=== PATIENT | male | born 1935 | race Caucasian/White ===

== ENCOUNTER 2016-07-18 09:34 | Outpatient (CLI) | payer MEDICARE ==
[2016-07-18 12:36] LABS: #Basophils 0.1 thou/uL (0.0-0.2); #Eosinphils 0.3 thou/uL (0.0-0.7); #Monocytes 0.5 thou/uL (0.11-0.59); #Neutrophils 1.7 thou/uL (1.40-6.50); %Basophils 1.4 % (0.0-1.0); %Eosinophils 6.1 % (0.0-10.0); %Lymphocytes 44.1 % (21.0-51.0); %Monocytes 10.3 % (0.0-10.0); Hematocrit 28.7 % (42.0-52.0); Mean Platelet Volume 8.1 fL (7.4-10.4); Red Blood Cell (RBC) Count 3.43 mill/uL (4.70-6.10); White Blood Cell (WBC) Count 4.5 thou/uL (4.8-10.8)
[2016-07-18 12:53] LABS: ALT (SGPT) 12 U/L (0-55); AST (SGOT) 17 U/L (5-34); Alkaline Phosphatase 100 U/L (40-150); Anion Gap 13 mmol/L (10-20); BUN (Urea Nitrogen) 25 mg/dL (8.4-25.7); Bilirubin, Direct 0.1 mg/dL (0.1-0.3); Bilirubin, Total 0.3 mg/dL (0.2-1.2); Calc. Creatinine Clearance 0 mL/min (70-130); Calcium 8.8 mg/dL (7.8-10.44); Carbon Dioxide 22 mmol/L (23-31); Chloride 109 mmol/L (98-107); Estimated GFR-MDRD 48; LDL Cholesterol, Calculated 49 mg/dL; Protein, Total 5.9 g/dL (5.8-8.1)
[2016-07-18 12:58] LABS: Hemoglobin A1c 5.4 % (4.0-6.0)
== END 2016-07-18 09:35 | disposition home or self-care (01) ==
LOC: NAVSJIPCSP 09:34
PROVIDERS: ATTEND Family Medicine
DX: E78.5 Hyperlipidemia, unspecified (principal); E11.51 Type 2 diabetes mellitus with diabetic peripheral angiopathy without gangrene; I10 Essential (primary) hypertension; Z79.899 Other long term (current) drug therapy
CPT/HCPCS: 36415; 80048; 80061; 80076; 83036; 84443; 85025

== ENCOUNTER 2016-11-15 08:32 | Outpatient (CLI) | payer MEDICARE ==
[2016-11-15 14:10] LABS: Hemoglobin 13.1 g/dL (14.0-18.0); Manual Diff?? YES; Mean Corpuscular HGB CONC 31.9 g/dL (32.0-36.0); Mean Corpuscular Hemoglobin 28.9 pg (27.0-31.0); Mean Corpuscular Volume 90.6 fL (80.0-94.0); Mean Platelet Volume 8.2 fL (7.4-10.4); Platelet Count 178 thou/uL (130-400); RBC Distribution Width 16.1 % (11.5-14.5); Red Blood Cell (RBC) Count 4.52 mill/uL (4.70-6.10); White Blood Cell (WBC) Count 4.6 thou/uL (4.8-10.8)
[2016-11-15 14:28] LABS: Eosinophils 2 % (0-10); Lymphocytes 57 % (21-51); Monocytes 8 % (0-10); Neutrophil 33 % (42-75); PLT Morphology Comment Appears Adequate
[2016-11-15 14:34] LABS: Hemoglobin A1c 5.7 % (4.0-6.0)
[2016-11-15 15:23] LABS: Anion Gap 15 mmol/L (10-20); Carbon Dioxide 24 mmol/L (23-31); Chloride 107 mmol/L (98-107); Sodium 141 mmol/L (136-145)
[2016-11-15 15:24] LABS: ALT (SGPT) 16 U/L (8-55); AST (SGOT) 23 U/L (5-34); Alkaline Phosphatase 121 U/L (40-150); BUN (Urea Nitrogen) 28 mg/dL (8.4-25.7); Bilirubin, Direct 0.2 mg/dL (0.1-0.3); Bilirubin, Total 0.3 mg/dL (0.2-1.2); Calc. Creatinine Clearance 0 mL/min (70-130); Calcium 9.2 mg/dL (7.8-10.44); Cholesterol 161 mg/dL (< 200 Desired); Estimated GFR-MDRD 54; Glucose 90 mg/dL (83-110); HDL Cholesterol 35 mg/dL (>60 Neg Risk); Protein, Total 6.6 g/dL (5.8-8.1); Triglycerides 384 mg/dL (Less than 150)
[2016-11-15 15:26] LABS: LDL Cholesterol, Calculated 49 mg/dL
[2016-11-15 15:27] LABS: Cardiac Risk 4.6 (Less than 4.5)
[2016-11-15 15:53] LABS: MDiff Complete? YES
[2016-11-15 16:39] LABS: PSA-Asymptomatic (SCREENING) 2.98 ng/mL (0-4.0); Thyroid Stimulating Hormone 3.2621 uIU/mL (0.35-4.94)
== END 2016-11-15 08:33 | disposition home or self-care (01) ==
LOC: NAVSJIPCSP 08:32
PROVIDERS: ATTEND Family Medicine
DX: Z12.5 Encounter for screening for malignant neoplasm of prostate (principal); E11.51 Type 2 diabetes mellitus with diabetic peripheral angiopathy without gangrene; E78.5 Hyperlipidemia, unspecified; D64.9 Anemia, unspecified; Z79.899 Other long term (current) drug therapy
CPT/HCPCS: 36415; 80048; 80061; 80076; 83036; 84443; 85025; G0103

== ENCOUNTER 2016-11-16 13:19 | Outpatient (CLI) | payer MEDICARE ==
[2016-11-17 18:49] LABS: Creatinine, Urine 177.37 mg/dL (63-166); Microalbumin Urine Less than 1.0 mg/dL (0.5-50.0); Microalbumin/Creat Ratio 5.6 mg/g (Less than 30)
== END 2016-11-16 13:20 | disposition home or self-care (01) ==
LOC: NAVSJIPCSP 13:19
PROVIDERS: ATTEND Family Medicine
DX: Z12.5 Encounter for screening for malignant neoplasm of prostate (principal); E11.51 Type 2 diabetes mellitus with diabetic peripheral angiopathy without gangrene; E78.5 Hyperlipidemia, unspecified; D64.9 Anemia, unspecified; Z79.899 Other long term (current) drug therapy
CPT/HCPCS: 82043

== ENCOUNTER 2017-03-22 10:17 | Outpatient (CLI) | payer MEDICARE ==
[2017-03-22 12:20] LABS: #Basophils 0.1 thou/uL (0.0-0.2); #Eosinphils 0.2 thou/uL (0.0-0.7); #Lymphocytes 1.6 thou/uL (1.20-3.40); #Monocytes 0.4 thou/uL (0.11-0.59); #Neutrophils 2.2 thou/uL (1.40-6.50); %Basophils 1.1 % (0.0-1.0); %Eosinophils 5.3 % (0.0-10.0); %Neutrophils 48.6 % (42.0-75.0); Hemoglobin 12.8 g/dL (14.0-18.0); Mean Corpuscular HGB CONC 31.5 g/dL (32.0-36.0); Mean Corpuscular Volume 92.1 fl (80.0-94.0); Mean Platelet Volume 8.6 fL (7.4-10.4); Platelet Count 199 thou/uL (130-400); RBC Distribution Width 12.1 % (11.5-14.5); Red Blood Cell (RBC) Count 4.42 mill/uL (4.70-6.10); White Blood Cell (WBC) Count 4.6 thou/uL (4.8-10.8)
[2017-03-22 12:30] LABS: ALT (SGPT) 13 U/L (8-55); AST (SGOT) 21 U/L (5-34); Albumin 4.1 g/dL (3.4-4.8); Alkaline Phosphatase 140 U/L (40-150); Anion Gap 14 mmol/L (10-20); BUN (Urea Nitrogen) 20 mg/dL (8.4-25.7); Bilirubin, Direct 0.1 mg/dL (0.1-0.3); Bilirubin, Total 0.3 mg/dL (0.2-1.2); Calc. Creatinine Clearance 0 mL/min (70-130); Calcium 9.4 mg/dL (7.8-10.44); Carbon Dioxide 26 mmol/L (23-31); Cardiac Risk 4.1 (Less than 4.5); Chloride 104 mmol/L (98-107); Cholesterol 153 mg/dl (< 200 Desired); Estimated GFR-MDRD 58; Glucose 105 mg/dL (83-110); HDL Cholesterol 37 mg/dL (>60 Neg Risk); LDL Cholesterol, Calculated 68 mg/dL; Potassium 4.5 mmol/L (3.5-5.1); Protein, Total 6.4 g/dL (5.8-8.1); Sodium 139 mmol/L (136-145); Triglycerides 241 mg/dL (Less than 150)
[2017-03-22 12:51] LABS: Hemoglobin A1c 5.7 % (4.0-6.0)
== END 2017-03-22 10:18 | disposition home or self-care (01) ==
LOC: NAVSJIPCSP 10:17
PROVIDERS: ATTEND Family Medicine
DX: E11.51 Type 2 diabetes mellitus with diabetic peripheral angiopathy without gangrene (principal); D64.9 Anemia, unspecified; E78.5 Hyperlipidemia, unspecified; Z79.899 Other long term (current) drug therapy
CPT/HCPCS: 36415; 80048; 80061; 80076; 83036; 84443; 85025

== ENCOUNTER 2017-05-26 12:36 | Emergency (ER) | payer MEDICARE ==
[2017-05-26] MEDS ORDERED: HYDROcodone/Acetaminophen 5/325 mg Tablet ONE (14:20)
--- NOTE | 2017-05-26 15:52 | RAD ---
THREE VIEWS OF THE LEFT ANKLE: 05/26/17 COMPARISON: None. HISTORY: Ankle injury, pain. FINDINGS: There is prominent medial and lateral soft tissue swelling. There is an obliquely oriented distal lef t fibular fracture. Distal fracture fragment demonstrates minimal lateral displacement. There is a po sterior malleolar fracture involving the distal left tibia, obliquely oriented, with minimal proximal and posterior displacement. There is a transverse displaced fracture of the medial malleolus. The fi bular fracture extends into the region of the distal tibia fibular articulation with slight widening which may signify an underlying injury of the interosseous membrane. No evidence for dislocation is s een. There is dorsal degenerative change involving the midfoot. There is enthesophyte formation at the ins ertion of the Achilles tendon. IMPRESSION: Displaced trimalleolar fracture. Post reduction imaging advised. POS: [place]
--- NOTE | 2017-05-26 16:12 | RAD ---
LEFT KNEE 2 VIEWS: Date: 05/26/17 HISTORY: Trauma. Pain. Fracture. COMPARISON: None. FINDINGS: Exam is limited by overlying cast material. No large joint effusion is appreciated. There are some os sicles of the distal quadriceps tendon, most likely avulsion fracture. IMPRESSION: Limited examination without a displaced fracture appreciated. Follow-up 4 views of knee recommended a fter cast material is removed with proper positioning. POS: [place]
== END 2017-05-26 14:45 | disposition home or self-care (01) ==
LOC: NAV ERS 12:36
DX: S82.852A Displaced trimalleolar fracture of left lower leg, initial encounter for closed fracture (principal); I25.10 Atherosclerotic heart disease of native coronary artery without angina pectoris; I10 Essential (primary) hypertension; Z79.899 Other long term (current) drug therapy; W01.0XXA Fall on same level from slipping, tripping and stumbling without subsequent striking against object, initial encounter
CPT/HCPCS: 29515

== ENCOUNTER 2018-11-07 13:28 | Inpatient (IN) | payer MEDICARE ==
[2018-11-07] MEDS ORDERED: tiZANidine HCl 4 MG TAB PO SCH (16:30)
[2018-11-07] MEDS: traMADol HCl 50 MG TAB PO PRN ×2 (16:36→21:36)
[2018-11-07] MEDS ORDERED: Polyethylene Glycol 3350 17 GM Packet PO PRN (19:06)
[2018-11-07] MEDS: Atorvastatin Calcium 10 MG TAB PO SCH (20:40)
[2018-11-07] MEDS: Gabapentin 300 MG CAP PO SCH (20:40)
[2018-11-07] MEDS: Carbidopa/Levodopa 25-100 mg Tablet PO SCH (20:40)
[2018-11-07] MEDS ORDERED: MISOPROSTOL PO SCH (21:00)
[2018-11-07] MEDS ORDERED: Gabapentin 300 MG CAP PO SCH (21:00)
[2018-11-07] MEDS ORDERED: DICLOFENAC PO SCH (21:00)
[2018-11-07] MEDS: Acetaminophen 500 MG TAB PO PRN (21:37)
[2018-11-07] MEDS: Zolpidem Tartrate 5 MG TAB PO SCH (22:24)
--- NOTE | 2018-11-08 02:46 | HP ---
HISTORY OF PRESENT ILLNESS: Mr. Messina is a very pleasant 83-year-old white male , who is transferred from [facility] to the [facility] here. Apparently, the patient was initially admitted to [facility] with a gastric pyloric obstruction. He was scoped by Dr. Carmichael, eventually stabilized and sent home. Two days later, the patient started with nausea, vomiting, and was directly admitted to the hospital. He was scoped again by Dr. Carmichael. 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 This was dilated again and bezoars were removed with 12-mm to 18-mm basket. The patient was stabilized , but continued to have duodenal obstruction or pyloric obstruction. Four days later, he was scoped again and continued to have dietary problems. Dr. Jose Blanc was asked to see the patient in consultation and recommended a Christianne-en-Y reconstruction with antrectomy. It was felt he was too weak to have that done and therefore, he was transferred to [facility] in [place] to continue with physical therapy, occupational therapy, and nutritional therapy to increase his nutrition. Last dietary recommendation was that the patient should have Enlive 4 times a day along with other nutritional supplements as needed. The goal is to get his protein to 80 grams a day. The patient was transferred today, and I sat down extensively with the patient and his went over his medications, adjusted them and corrected them to what they should be. Those medications include the following; CURRENT MEDICATIONS: Includes the following; 1. Procardia XL 90 mg every morning. 2. Simvastatin 20 mg once every evening, which has been substituted for atorvastatin here at this hospital. 3. Carbidopa/levodopa 25/100, one pill every evening, not every morning. 4. Isosorbide mononitrate ER 30 mg extended tab one b.i.d. 5. Ranexa 500 mg extended release 12 hours one b.i.d. 6. Pantoprazole 40 mg b.i.d. 7. Gabapentin 300 mg b.i.d. 8. Tizanidine 4 mg one b.i.d. p.r.n., and the patient states he may take one or two a week. 9. Tramadol 100 mg 4 times a day, which is about every 6 hours with a Tylenol. 10. Ambien 10 mg once a day at bedtime. PAST MEDICAL HISTORY: 1. Reveals the patient has had history of coronary artery disease with multiple stents, I believe up to 9. 2. 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 3. Anemia. 4. Insomnia. 5. GERD. 6. Restless legs syndrome. 7. Hypertension. 8. Arthritis. 9. Hyperlipidemia. 10. Nasal allergies. 11. Chronic sinusitis. PAST SURGICAL HISTORY: 1. Left rotator cuff in 1986. 2. Carpal tunnel release in 1994. 3. Back surgery in 1998. 4. Neck surgery in 2000. 5. Total right knee in 2007. 6. Back surgery for L2 decompression fusion in 2006. 7. Back stabilization, Dr. Zhang, in 2013. 8. Hammertoe surgery, Dr. Fan, in 2008. 9. Right cataract surgery, Dr. Everett, in 2012. 10. Right cataract surgery revision, Dr. Everett, in 2012. 11. Repair of right eye cataract surgery for incorrect lens, Dr. Everett, in 2014. 12. Cardiac cath with balloon and stents x3 with Dr. Mcdonald in 2015. 13. Cardiac cath again in 2016. 14. Excision of basal cell carcinoma by Dr. Jose Blanc in 2016. 15. Right ankle surgery in 2017. 16. Repeat L1-L2 lumbar decompression, Dr. Elder, in 2018. 17. Five bulging disks, Dr. Elder, in 2018. 18. Bone spurs, Dr. Elder, in 2019. FAMILY HISTORY: Reveals the patient's father at age 82. The patient's mother at age 81 of aneurysm. The patient has a family history of high cholesterol and heart disease. SOCIAL HISTORY: Reveals the patient does not smoke. Does not use drugs, rarely drinks any alcohol. ALLERGIES: REVEALS THE PATIENT HAS MULTIPLE ALLERGIES INCLUDING; 1. IVP DYE. 2. CLARITIN. 3. ISORDIL TITRADOSE. 4. CELEBREX. 5. INDOCIN. 6. VANNESSA INHIBITORS. 7. PRASUGREL. 8. Morphine 9 TAPE REVIEW OF SYSTEMS: CONSTITUTIONAL: Reveals the patient denies fever, chills, and night sweats. He has been losing weight since he has not been eating. The patient has significant fatigue and weakness. HEENT: The patient denies headaches or head injury and denies any changes in his vision recently. The patient denies any significant allergy problems recently or rhinorrhea. RESPIRATORY: The patient denies respiratory problems including cough, cold, congestion, or wheezing. CARDIAC: The patient denies any chest pain, dyspnea on exertion, or significant edema except for that in his arms from his IVs. GI: The patient has had some diarrhea, mainly nausea and vomiting and outlet obstruction from the duodenum. GENITOURINARY: The patient denies any nocturia, hematuria, dysuria, or incontinence at this time. MUSCULOSKELETAL: The patient denies any joint swelling, but he has bad knees and bad back and has pain from that. SKIN: The patient denies any skin rashes. He does have swelling in his right arm and left arm from an infiltrated IVs. PHYSICAL EXAMINATION: GENERAL: This is a well-developed, well-nourished, very pleasant 83-year-old white male, who states he just feels weak. HEENT: Reveals normocephalic and nontraumatic cranium. Pupils are equally round and reactive. Extraocular movements are intact. Nose and throat are slightly dry. NECK: Supple without masses, nodes, or bruits. CHEST: Clear to auscultation. No rales, no rhonchi, no wheezes are heard. HEART: Reveals a regular rate and rhythm without murmurs, gallops, or rubs. ABDOMEN: Soft, scaphoid, nontender without organomegaly. Bowel sounds are heard in all 4 quadrants. No rebound or guarding is noted. No masses are felt. No CVA tenderness. : Exam is deferred. EXTREMITIES: Reveal no clubbing or cyanosis. The patient has quite a bit of swelling in his right arm from the IV infiltrated and some in his left arm. He has trace edema in bilateral extremities. He has no CVA tenderness. NEUROLOGIC: The patient has no focal findings. ASSESSMENT: 1. Pyloric ulcer. 2. Gastric outlet obstruction. 3. Removal of a bezoar by Dr. Carmichael. 4. History of coronary arterial sclerosis, followed by Dr. Mcdonald. 5. Insomnia. 6. Diabetes type 2 with diabetic peripheral neuropathy. 7. Anemia. 8. Restless legs syndrome. 9. Hypertension. 10. Arthritis. 11. Pain management. 12. Hyperlipidemia. PLAN: 1. The patient was transferred here for increasing his nutrition and to increase his strength and stamina. 2. We will consult Physical Therapy. 3. We will consult Occupational Therapy. 4. We will do a Dietary consult. 5. We will make sure the patient gets at least 80 g of protein every day and lot of fluids. 6. The patient will have a low fiber diet. Job ID: [id number] MTDD
[2018-11-08 05:45] LABS: ALT (SGPT) 12 U/L (8-55); AST (SGOT) 38 U/L (5-34); Albumin 2.2 g/dL (3.4-4.8); Alkaline Phosphatase 146 U/L (40-150); Anion Gap 12 mmol/L (10-20); BUN (Urea Nitrogen) 17 mg/dL (8.4-25.7); Bilirubin, Total 0.2 mg/dL (0.2-1.2); Calc. Creatinine Clearance 83 mL/min (70-130); Carbon Dioxide 26 mmol/L (23-31); Chloride 100 mmol/L (98-107); Estimated GFR-MDRD 78; Globulin 2.5 g/dL (2.4-3.5); Glucose 96 mg/dL (83-110); Potassium 4.2 mmol/L (3.5-5.1); Protein, Total 4.7 g/dL (5.8-8.1); Sodium 134 mmol/L (136-145)
[2018-11-08 05:52] LABS: #Lymphocytes 1.8 thou/uL (1.20-3.40); #Monocytes 0.5 thou/uL (0.11-0.59); #Neutrophils 3.5 thou/uL (1.40-6.50); %Basophils 0.3 % (0.0-1.0); %Eosinophils 0.8 % (0.0-10.0); %Lymphocytes 30.1 % (21.0-51.0); %Monocytes 9.3 % (0.0-10.0); %Neutrophils 59.5 % (42.0-75.0); Hemoglobin 7.6 g/dL (14.0-18.0); Hypochromia MODERATE=16-30 cells (100X) (0-5/hpf); MDiff Complete? YES; Mean Corpuscular HGB CONC 30.2 g/dL (32.0-36.0); Mean Corpuscular Hemoglobin 24.6 pg (27.0-31.0); Mean Corpuscular Volume 81.5 fL (78.0-98.0); Mean Platelet Volume 6.8 fL (7.4-10.4); Microcytosis MODERATE=15-30 cells (100X) (0-5/hpf); Ovalocytes SLIGHT = 2-5 cells (100X) (0-1/hpf); Platelet Count 302 thou/uL (130-400); Platelet Morphology Comment Appears Adequate; RBC Distribution Width 14.8 % (11.5-14.5); Red Blood Cell (RBC) Count 3.11 mill/uL (4.70-6.10); Target Cells MODERATE= 6-15 cells (100X) (0-1/hpf); White Blood Cell (WBC) Count 5.8 thou/uL (4.8-10.8)
[2018-11-08] MEDS: Acetaminophen 500 MG TAB PO PRN ×3 (08:15→20:32)
[2018-11-08] MEDS: traMADol HCl 50 MG TAB PO PRN ×3 (08:15→20:33)
[2018-11-08] MEDS: Gabapentin 300 MG CAP PO SCH ×2 (08:16→20:32)
[2018-11-08] MEDS: NIFEdipine XL 30 MG TAB PO SCH (08:16)
[2018-11-08] MEDS ORDERED: Polyethylene Glycol 3350 17 GM Packet PO SCH (09:00)
[2018-11-08] MEDS ORDERED: Carbidopa/Levodopa 25-100 mg Tablet PO SCH (09:00)
--- NOTE | 2018-11-08 10:48 | PRG ---
DATE OF SERVICE: 11/08/2018 SUBJECTIVE: Mr. Messina is a very pleasant 83-year-old white male, who was transferred from [facility] to swing bed at [facility] secondary to postbulbar duodenal stricture. Dr. Carmichael scoped him 2 or 3 times and removed bezoar and dilated that obstruction. He is unable to take any fibers at this time, and therefore, he is on pretty much full liquid diet. He was transferred by Dr. Jose Blanc to stay here a couple weeks to increase his nutritional status and to increase his strength and stamina. He states he slept well last night, but he is anemic this morning. His white count was 5800, but his hemoglobin 7.6, hematocrit 25.4, platelet count 302,000. Sodium is 134, potassium 4.2, creatinine 0.93, AST 38, ALT 12, and his pre-albumin is pending. The patient states he had a fairly good day. Eating and drinking okay today. PHYSICAL EXAMINATION: GENERAL: This is a well-developed, well-nourished, very pleasant white male, in no apparent distress at this time. HEENT: Normocephalic and nontraumatic cranium. Pupils are equal, round, and reactive. Extraocular movements are intact. Nose and throat are slightly dry. NECK: Supple without masses, nodes, or bruits. CHEST: Clear to auscultation. No rales, rhonchi, or wheezes are heard. HEART: Regular rate and rhythm without murmurs, gallops, or rubs. ABDOMEN: Soft, nontender without organomegaly. Normal bowel sounds are noted. No rebound or guarding is noted. Diary is improving. : Deferred. EXTREMITIES: No clubbing or cyanosis. The patient's right hand has less edema than it did yesterday. He states it feels better. ASSESSMENT: 1. Pyloric ulcer. 2. Anemia. 3. Gastric outlet obstruction. 4. Removal of bezoar by Dr. Carmichael. 5. History of coronary artery disease, followed by Dr. Mcdonald. 6. Diabetes type 2 with diabetic peripheral neuropathy in the past. 7. Insomnia. 8. Anemia. 9. Restless legs syndrome. 10. Hypertension. 11. Arthritis. 12. Hyperlipidemia. 13. Pain management. PLAN: 1. The patient is complaining about being drawn every day. We will skip his blood count tomorrow and repeat a CBC tomorrow and next skip his blood count today and repeat a CBC tomorrow. 2. Consult Physical Therapy and Occupational Therapy. 3. Dietary consult. 4. The patient should begin at least 80 g of protein a day, lots of liquids. 5. Full liquid diet. Job ID: [id number]
[2018-11-08] MEDS: Carbidopa/Levodopa 25-100 mg Tablet PO SCH (20:57)
[2018-11-08] MEDS: Atorvastatin Calcium 10 MG TAB PO SCH (20:57)
[2018-11-08] MEDS: Zolpidem Tartrate 5 MG TAB PO SCH (22:04)
[2018-11-09] MEDS: Acetaminophen 500 MG TAB PO PRN ×2 (02:30→19:35)
[2018-11-09] MEDS: traMADol HCl 50 MG TAB PO PRN ×4 (02:30→19:36)
[2018-11-09] MEDS: NIFEdipine XL 30 MG TAB PO SCH (09:11)
[2018-11-09] MEDS: Gabapentin 300 MG CAP PO SCH ×2 (09:12→20:47)
--- NOTE | 2018-11-09 14:14 | PRG ---
DATE OF SERVICE: 11/09/2018 SUBJECTIVE: This is a very pleasant, well-developed, 83-year-old white male, who was seen at [facility] with a postbulbar duodenal stricture that had to be scoped twice. He had a bezoar removed and that obstruction was dilated out. He is unable to take any fibrous food at this time, and therefore, he is pretty much on a full-liquid high-protein diet. He was transferred by Dr. Blanc to [facility] to increase his strength, stamina, and nutritional status. The patient states he had a pretty good night last night, but had to urinate multiple times. The patient states that that happens occasionally. PHYSICAL EXAMINATION: GENERAL: This is a well-developed, well-nourished, very pleasant white male, in no apparent distress at this time. HEENT: Reveals normocephalic and nontraumatic cranium. Pupils are equally round and reactive. Extraocular movements are intact. Nose and throat are slightly dry, but clear. NECK: Supple without masses, nodes, or bruits. CHEST: Clear to auscultation. No rales, rhonchi, or wheezes are heard. HEART: Reveals a regular rate and rhythm without murmurs, gallops, or rubs. ABDOMEN: Soft and nontender without organomegaly. Normal bowel sounds noted. No abdominal pain is noted. No rebound or guarding is noted. : Deferred. EXTREMITIES: Reveal no clubbing or cyanosis. The patient's hand has much less edema and swelling. It is much less painful. ASSESSMENT: 1. Pyloric ulcer. 2. Duodenal and small-bowel obstruction. 3. Anemia. 4. Removal of bezoar by Dr. Carmichael. 5. History of coronary artery disease, followed by 6Latha Mcdonald. 7. Diabetes type 2 with diabetic peripheral neuropathy in the past. 8. Insomnia. 9. Anemia. 10. Restless legs syndrome. 11. Hypertension. 12. Arthritis. 13. Hyperlipidemia. 14. Pain management. PLAN: 1. The patient will have his tramadol moved to q.4 hours p.r.n. 2. We will skip his CBC this morning, and we will repeat a CBC and chem-7 tomorrow. 3. Continue PT and OT. 4. Dietary consult. 5. The patient should begin at least 80 g of protein a day, lots of liquids. 6. Full-liquid diet. Job ID: [id number]
[2018-11-09] MEDS: Carbidopa/Levodopa 25-100 mg Tablet PO SCH (20:47)
[2018-11-09] MEDS: Atorvastatin Calcium 10 MG TAB PO SCH (20:47)
[2018-11-09] MEDS: Zolpidem Tartrate 5 MG TAB PO SCH (22:28)
[2018-11-10 05:12] LABS: #Eosinphils 0.1 thou/uL (0.0-0.7); #Lymphocytes 1.7 thou/uL (1.20-3.40); #Monocytes 0.5 thou/uL (0.11-0.59); #Neutrophils 3.4 thou/uL (1.40-6.50); %Basophils 0.7 % (0.0-1.0); %Lymphocytes 30.1 % (21.0-51.0); %Monocytes 7.9 % (0.0-10.0); %Neutrophils 59.3 % (42.0-75.0); Hemoglobin 7.8 g/dL (14.0-18.0); Hypochromia MODERATE=16-30 cells (100X) (0-5/hpf); MDiff Complete? YES; Mean Corpuscular HGB CONC 30.5 g/dL (32.0-36.0); Mean Corpuscular Hemoglobin 24.5 pg (27.0-31.0); Mean Corpuscular Volume 80.4 fL (78.0-98.0); Mean Platelet Volume 6.9 fL (7.4-10.4); Microcytosis MODERATE=15-30 cells (100X) (0-5/hpf); Ovalocytes SLIGHT = 2-5 cells (100X) (0-1/hpf); Platelet Count 342 thou/uL (130-400); Platelet Morphology Comment Appears Adequate; Red Blood Cell (RBC) Count 3.18 mill/uL (4.70-6.10); Target Cells MODERATE= 6-15 cells (100X) (0-1/hpf); White Blood Cell (WBC) Count 5.8 thou/uL (4.8-10.8)
[2018-11-10 05:27] LABS: Anion Gap 12 mmol/L (10-20); BUN (Urea Nitrogen) 14 mg/dL (8.4-25.7); Calc. Creatinine Clearance 92 mL/min (70-130); Calcium 8.1 mg/dL (7.8-10.44); Carbon Dioxide 28 mmol/L (23-31); Chloride 99 mmol/L (98-107); Estimated GFR-MDRD 87; Glucose 88 mg/dL (83-110); Potassium 3.8 mmol/L (3.5-5.1); Sodium 135 mmol/L (136-145)
[2018-11-10] MEDS: traMADol HCl 50 MG TAB PO PRN ×4 (07:15→22:40)
[2018-11-10] MEDS: Acetaminophen 500 MG TAB PO PRN ×4 (07:15→22:39)
--- NOTE | 2018-11-10 08:17 | PRG ---
DATE OF SERVICE: 11/10/2018 SUBJECTIVE: Mr. Messina is a very pleasant 83-year-old white male, who had a small bowel obstruction, was seen in the emergency room at [facility] twice. He had been scoped 2 [address] Carmichael and had a bezoar removed. The obstruction was dilated twice. He is unable to take any fibrous food at this time. Therefore, he is pretty much on a full liquid high-protein diet. He is transferred by Dr. Blanc the surgeon to [facility] to increase his strength, stamina, and nutritional status before he has curative surgery. The patient states he had a pretty good night last night and slept well. He has no complaints this morning. On physical exam, the patient states he is doing well today. OBJECTIVE: VITAL SIGNS: Reveal blood pressure 161/77, pulse 71 to 76, respirations 20, O2 saturation of 97% on room air, T-max 98.9. GENERAL: On physical exam, this is a well-developed, well-nourished, very pleasant white male, in no apparent distress at this time. HEENT: Revealed normocephalic and nontraumatic cranium. Pupils are equal, round, and reactive. Extraocular movements are intact. Nose and throat are still dry, but clear. NECK: Supple without masses, nodes, or bruits. CHEST: Clear to auscultation. No rales, rhonchi, wheezes, or cough is noted. HEART: Reveals a regular rate and rhythm without murmurs, gallops, or rubs. ABDOMEN: Soft, nontender without organomegaly. Normal bowel sounds are noted. No rebound or guarding is noted. Abdomen is somewhat scaphoid. It is nontender. : Deferred. EXTREMITIES: Reveal no clubbing or cyanosis. The patient has much less swelling again in his right hand and states he can now close it and touch his fingers. ASSESSMENT: 1. Pyloric ulcer. 2. Duodenal small-bowel obstruction. 3. Anemia. 4. Bezoar removed by Dr. Carmichael. 5. History of coronary artery disease, followed by Dr. Mcdonald. 6. Diabetes type 2 with diabetic peripheral neuropathy in the past. 7. Insomnia. 8. Anemia. 9. Restless legs syndrome. 10. Hypertension. 11. Arthritis. 12. Hyperlipidemia. 13. Pain management. PLAN: 1. The patient's pain management has much improved. 2. The patient's blood work this morning reveals his hemoglobin is 7.8 which is slightly increased and hematocrit is 24.5, which is slightly increased. Creatinine is 0.84. 3. Continue PT and OT. 4. Dietary consult. 5. The patient should begin at least 80 g of protein and more if needed. 6. The patient's pre-albumin was noted to be 7 and so we will start the patient on Pro-Stat daily. 7. Encourage the patient to eat high-protein and low-fiber. Job ID: [id number]
[2018-11-10] MEDS: NIFEdipine XL 30 MG TAB PO SCH (08:36)
[2018-11-10] MEDS: Gabapentin 300 MG CAP PO SCH ×2 (08:36→21:29)
[2018-11-10] MEDS: Atorvastatin Calcium 10 MG TAB PO SCH (21:29)
[2018-11-10] MEDS: Carbidopa/Levodopa 25-100 mg Tablet PO SCH (21:29)
[2018-11-10] MEDS: Zolpidem Tartrate 5 MG TAB PO SCH (22:39)
[2018-11-11] MEDS: NIFEdipine XL 30 MG TAB PO SCH (08:29)
[2018-11-11] MEDS: Gabapentin 300 MG CAP PO SCH ×2 (08:29→21:08)
[2018-11-11] MEDS: traMADol HCl 50 MG TAB PO PRN ×4 (08:30→23:08)
[2018-11-11] MEDS: Acetaminophen 500 MG TAB PO PRN ×4 (08:30→23:08)
--- NOTE | 2018-11-11 09:09 | PRG ---
DATE OF SERVICE: 11/11/2018 SUBJECTIVE: Mr. Messina is a very pleasant 83-year-old white male, who developed small bowel obstruction. Sent to [facility], where he was decompressed and scoped. He was sent home, but returned several days later with the same problem. Dr. Carmichael did EGDs on him and removed a bezoar and dilated his distal duodenum 2 to 3 times. He is unable to keep any fibrous food down, so therefore, he was transferred to [facility] for increased full liquid, high-protein diet. He has been seen by Dr. Jose Blanc, surgeon at [facility]. The plan is to get Mr. Messina much stronger and significantly improve his nutrition and then take him to surgery for possible Christianne-en-Y. OBJECTIVE: VITAL SIGNS: Reveal blood pressure 145/68, pulse 71 to 72, respirations 18, O2 saturation 96% to 97% on room air. T-max 98.8. GENERAL: This is a well-developed, well-nourished, pleasant white male, in no apparent distress at this time. He states he has not had a bowel movement in the last day. HEENT: Reveals a normocephalic and nontraumatic cranium. Pupils are equally round and reactive. Extraocular movements are intact. Nose and throat are slightly dry, but clear. NECK: Supple without masses, nodes, or bruits. CHEST: Clear to auscultation. No rales, rhonchi, wheezes are heard. HEART: Reveals a regular rate and rhythm without murmurs, gallops or rubs. ABDOMEN: Soft, nontender without organomegaly. Normal bowel sounds are noted in all 4 quadrants. No rebound or guarding is noted. GENITOURINARY: Exam is deferred. EXTREMITIES: Reveal no clubbing, cyanosis, or edema. The patient has again much less swelling. His right hand is almost back to normal and now he can make a fist. ASSESSMENT: 1. Small bowel obstruction. 2. Pyloric channel ulcer. 3. Anemia. 4. Bezoar removed by Dr. Carmichael secondary to obstruction. 5. Coronary artery disease, followed by Dr. Mcdonald. 6. Diabetes type 2. 7. Diabetic peripheral neuropathy. 8. Insomnia. 9. Anemia. 10. Restless legs syndrome. 11. Hypertension. 12. Arthritis. 13. Hyperlipidemia. 14. Pain management. 15. Generalized weakness. PLAN: 1. The patient's pain management is much improved with his tramadol 2 pills 4 times a day. 2. The patient had no blood work today. We will repeat his blood work tomorrow. 3. Continue PT and OT. 4. Continue dietary consult. 5. The patient is eating at least 80 g of protein a day. 6. The patient is tolerating ProStat daily. 7. Encourage the patient to continue to eat/drink high-protein, low-fiber. Job ID: [id number]
[2018-11-11 13:53] VITALS: BMI 25.2
[2018-11-11] MEDS: Atorvastatin Calcium 10 MG TAB PO SCH (21:08)
[2018-11-11] MEDS: Carbidopa/Levodopa 25-100 mg Tablet PO SCH (21:08)
[2018-11-11] MEDS: Zolpidem Tartrate 5 MG TAB PO SCH (23:08)
[2018-11-12] MEDS: Acetaminophen 500 MG TAB PO PRN ×4 (04:59→20:23)
[2018-11-12] MEDS: traMADol HCl 50 MG TAB PO PRN ×4 (04:59→20:21)
[2018-11-12 05:04] LABS: #Eosinphils 0.1 thou/uL (0.0-0.7); #Lymphocytes 1.9 thou/uL (1.20-3.40); #Monocytes 0.4 thou/uL (0.11-0.59); #Neutrophils 2.2 thou/uL (1.40-6.50); %Eosinophils 2.8 % (0.0-10.0); %Monocytes 8.3 % (0.0-10.0); %Neutrophils 46.9 % (42.0-75.0); Hemoglobin 7.9 g/dL (14.0-18.0); Hypochromia MODERATE=16-30 cells (100X) (0-5/hpf); Mean Corpuscular HGB CONC 29.9 g/dL (32.0-36.0); Mean Corpuscular Hemoglobin 24.4 pg (27.0-31.0); Mean Corpuscular Volume 81.6 fL (78.0-98.0); Mean Platelet Volume 6.6 fL (7.4-10.4); Microcytosis MODERATE=15-30 cells (100X) (0-5/hpf); Ovalocytes SLIGHT = 2-5 cells (100X) (0-1/hpf); Platelet Count 247 thou/uL (130-400); Platelet Morphology Comment Appears Adequate; RBC Distribution Width 15.3 % (11.5-14.5); Red Blood Cell (RBC) Count 3.26 mill/uL (4.70-6.10); Target Cells MODERATE= 6-15 cells (100X) (0-1/hpf); White Blood Cell (WBC) Count 4.6 thou/uL (4.8-10.8)
[2018-11-12 05:07] LABS: MDiff Complete? YES; Manual Diff?? NO
[2018-11-12 05:23] LABS: ALT (SGPT) 16 U/L (8-55); AST (SGOT) 36 U/L (5-34); Albumin 2.4 g/dL (3.4-4.8); Alkaline Phosphatase 137 U/L (40-150); Anion Gap 13 mmol/L (10-20); BUN (Urea Nitrogen) 15 mg/dL (8.4-25.7); Bilirubin, Total 0.2 mg/dL (0.2-1.2); Calc. Creatinine Clearance 81 mL/min (70-130); Calcium 8.1 mg/dL (7.8-10.44); Carbon Dioxide 28 mmol/L (23-31); Chloride 101 mmol/L (98-107); Estimated GFR-MDRD 80; Globulin 2.5 g/dL (2.4-3.5); Glucose 85 mg/dL (83-110); Potassium 3.8 mmol/L (3.5-5.1); Protein, Total 4.9 g/dL (5.8-8.1); Sodium 138 mmol/L (136-145)
[2018-11-12] MEDS: Gabapentin 300 MG CAP PO SCH ×2 (08:54→20:20)
[2018-11-12] MEDS: NIFEdipine XL 30 MG TAB PO SCH (08:54)
[2018-11-12] MEDS: Atorvastatin Calcium 10 MG TAB PO SCH (20:19)
[2018-11-12] MEDS: Carbidopa/Levodopa 25-100 mg Tablet PO SCH (20:20)
--- NOTE | 2018-11-12 21:13 | PRG ---
DATE OF SERVICE: 11/12/2018 SUBJECTIVE: Mr. Messina is a very pleasant 83-year-old white male, who has small bowel obstruction and presented to the ER at [facility], where he was decompressed and scoped. He was sent home and several days later, returned to the ER again at [facility] with the same problem. Dr. Carmichael did serial EGDs on him, removed a bezoar and dilated his distal duodenal stenosis. The patient was unable to keep any fibers down, so he was scheduled for Christianne-en-Y. It was felt that he was too weak and so therefore, he was transferred to [facility] for physical therapy and occupational therapy to increase his strength and stamina and for nutritional supplementation with liquid proteins. OBJECTIVE: VITAL SIGNS: Today reveal blood pressure this morning of 154/71, pulse 68, respirations 18, O2 saturation 96% to 97% on room air and T-max 98.4. GENERAL: This is a well-developed, well-nourished, very pleasant white male, in no apparent distress at this time. HEENT: Normocephalic and nontraumatic cranium. The pupils are equally round and reactive. Extraocular movements are intact. Nose and throat are slightly dry. NECK: Supple without masses, nodes, or bruits. CHEST: Clear to auscultation. No rales, rhonchi, wheezes, or cough is heard. HEART: Reveals a regular rate and rhythm without murmurs, gallops, or rubs. ABDOMEN: Soft, scaphoid, nontender without organomegaly. Normal bowel sounds are noted. No rebound or guarding is noted. : Deferred. EXTREMITIES: Reveal no clubbing, cyanosis, or edema. The patient has again much less swelling in his right and left hands. ASSESSMENT: 1. Small bowel obstruction. 2. Pyloric channel ulcer. 3. Anemia. 4. Bezoar removed by Dr. Carmichael that gave secondary obstruction. 5. Coronary artery disease, followed by Dr. Mcdonald. 6. Diabetes type 2. 7. Diabetic peripheral neuropathy. 8. Insomnia. 9. Anemia. 10. Restless legs syndrome. 11. Hypertension. 12. Arthritis. 13. Hyperlipidemia. 14. Pain management. 15. Generalized weakness. PLAN: 1. The patient is here to increase his protein intake and nutritional support. 2. His lab work is actually slowly improving. 3. Continue PT and OT. 4. Dietary consult. 5. The patient is to eat at least 80 g of protein a day. 6. The patient is tolerating ProStat daily. 7. Encourage the patient to continue PT and OT and eating and drinking high-protein, low-fiber diet. Job ID: [id number]
[2018-11-12] MEDS: Zolpidem Tartrate 5 MG TAB PO SCH (22:36)
[2018-11-13] MEDS: traMADol HCl 50 MG TAB PO PRN ×4 (02:04→18:26)
[2018-11-13] MEDS: Acetaminophen 500 MG TAB PO PRN ×4 (02:05→18:26)
[2018-11-13] MEDS: NIFEdipine XL 30 MG TAB PO SCH (08:30)
[2018-11-13] MEDS: Gabapentin 300 MG CAP PO SCH ×2 (08:30→20:18)
--- NOTE | 2018-11-13 10:17 | PRG ---
DATE OF SERVICE: 11/13/2018 SUBJECTIVE: Mr. Messina is a very pleasant 83-year-old white male, who had abdominal pain and small bowel obstruction. He presented to the emergency room and was transferred to [facility], where he was decompressed and scoped. He was stabilized and sent home. Seven days later, he became obstructed again, went back to the [facility]. At this time Dr. Carmichael did several EGDs on him, removed a bezoar and slowly dilated a distal duodenal stenosis. The patient was unable to keep any fibrous foods down, so he was schedule for a Christianne-en-Y. He was too weak to get his Christianne-en-Y. Therefore, he was transferred to [facility] for PT and OT and for nutritional supplementation. OBJECTIVE: VITAL SIGNS: Today reveal blood pressure 156/80, pulse 64 to 73, respirations 18 to 20, O2 saturation 96% to 97% on room air, and T-max 98.4. GENERAL: This is a well-developed, well-nourished, very pleasant white male, in no apparent distress at this time. HEENT: Reveals normocephalic and nontraumatic cranium. Pupils are equal, round, and reactive. Extraocular movements are intact. Nose and throat are slightly dry. NECK: Supple without masses, nodes, or bruits. CHEST: Clear to auscultation. No rales, rhonchi, wheezes, or cough is heard. HEART: Reveals a regular rate and rhythm without murmurs, gallops, or rubs. ABDOMEN: Soft, scaphoid, and nontender. No organomegaly is noted. Normal bowel sounds are noted. No rebound or guarding is noted. : Deferred. EXTREMITIES: Reveal no clubbing, cyanosis, or edema. The patient has no significant swelling in his hands right or left. He does have some swelling in his elbow and his upper arm, which is a dependent type swelling. ASSESSMENT: 1. Small bowel obstruction. 2. Pyloric channel ulcer. 3. Anemia. 4. Coronary artery disease, followed by Dr. Mcdonald. 5. Diabetes type 2. 6. Diabetic peripheral neuropathy. 7. Hypertension. 8. Anemia. 9. Restless legs syndrome. 10. Insomnia. 11. Bezoar removed by Dr. Carmichael. 12. Hyperlipidemia. 13. Arthritis. 14. Pain management. 15. Generalized weakness. PLAN: 1. The patient will continue to eat a liquid protein high protein diet. 2. Dietary consult. 3. Continue PT and OT. 4. The patient is instructed to eat at least 80 g of protein a day. 5. The patient is tolerating Pro-Stat once a day. 6. Continue physical therapy and occupational therapy. Job ID: [id number]
[2018-11-13] MEDS: Atorvastatin Calcium 10 MG TAB PO SCH (20:17)
[2018-11-13] MEDS: Carbidopa/Levodopa 25-100 mg Tablet PO SCH (20:18)
[2018-11-13] MEDS: Zolpidem Tartrate 5 MG TAB PO SCH (23:44)
[2018-11-13] MEDS: Zolpidem Tartrate 5 MG TAB PO PRN (23:44)
[2018-11-14] MEDS: traMADol HCl 50 MG TAB PO PRN ×4 (03:44→21:41)
[2018-11-14] MEDS: NIFEdipine XL 30 MG TAB PO SCH (08:49)
[2018-11-14] MEDS: Gabapentin 300 MG CAP PO SCH ×2 (08:49→20:43)
[2018-11-14] MEDS: Acetaminophen 500 MG TAB PO PRN ×3 (10:11→21:42)
--- NOTE | 2018-11-14 10:46 | PRG ---
DATE OF SERVICE: 11/14/2018 SUBJECTIVE: Mr. Messina is a very pleasant 83-year-old white male. He developed some abdominal pain, went to the ER, was found to have a small-bowel obstruction, transferred to [facility] and was evaluated with EGD. 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 He was sent home after stabilized, but several days later returned. At this time, he had EGD, again which revealed a bezoar, which was removed by Dr. Carmichael. The patient did have that distal stenosis dilated again and then a couple days later, dilated again. Unfortunately, it is stiffen up that he needs to have no fibrous food, so he was scheduled for Christianne-en-Y by Dr. Jose Blanc. Unfortunately, he was very weak and malnourished and therefore, he was transferred to [facility] for high-protein liquid diet, physical therapy, and occupational therapy. OBJECTIVE: VITAL SIGNS: Today reveal blood pressure slightly elevated to 168/83, pulse 63 to 66, respirations 18 to 20, O2 saturation 97% to 99% on room air, and T-max 98.2. GENERAL: This is a well-developed, well-nourished, very pleasant and very tolerant white male, in no apparent distress at this time. HEENT: Normocephalic and nontraumatic cranium. The pupils are equally round and reactive. Extraocular movements are intact. Nose and throat are moist today. NECK: Supple without masses, nodes, or bruits. CHEST: Clear to auscultation. No rales, rhonchi, wheezes are heard. HEART: Reveals a regular rate and rhythm without murmurs, gallops, or rubs. ABDOMEN: Soft, scaphoid, nontender with normal bowel sounds. No bowel movement today is noted yet. No rebound or guarding is noted. : Deferred. EXTREMITIES: Reveal no clubbing or cyanosis with decreasing edema in his right upper arm now. ASSESSMENT: 1. Small bowel obstruction. 2. Pyloric channel ulcer. 3. Malnutrition. 4. Anemia. 5. Coronary artery disease followed by Dr. Mcdonald. 6. Diabetes type 2. 7. Hypertension. 8. Diabetic peripheral neuropathy. 9. Anemia. 10. Restless legs syndrome. 11. Insomnia. 12. Bezoar, removed by Dr. Ragupathi. 13. Hyperlipidemia. 14. Arthritis. 15. Generalized weakness. 16. Pain management. PLAN: 1. The patient will continue with high-liquid protein diet. 2. Dietary consult was seen yesterday. 3. Continue present medications. 4. Continue physical therapy and occupational therapy. 5. The patient is tolerating Pro-Stat once a day. 6. Continue to monitor labs every . Labs were already ordered for tomorrow. Job ID: [id number]
[2018-11-14] MEDS: Atorvastatin Calcium 10 MG TAB PO SCH (20:43)
[2018-11-14] MEDS: Carbidopa/Levodopa 25-100 mg Tablet PO SCH (20:43)
[2018-11-14] MEDS: Zolpidem Tartrate 5 MG TAB PO PRN (22:37)
[2018-11-15] MEDS: Zolpidem Tartrate 5 MG TAB PO SCH ×2 (00:52→20:58)
[2018-11-15] MEDS: Acetaminophen 500 MG TAB PO PRN ×4 (05:27→23:51)
[2018-11-15] MEDS: traMADol HCl 50 MG TAB PO PRN ×4 (05:27→23:51)
[2018-11-15 05:39] LABS: Band 4 % (5-11); Hypochromia MODERATE=16-30 cells (100X) (0-5/hpf); Lymphocytes 36 % (21-51); MDiff Complete? YES; Mean Corpuscular HGB CONC 29.9 g/dL (32.0-36.0); Mean Corpuscular Volume 80.3 fL (78.0-98.0); Mean Platelet Volume 6.8 fL (7.4-10.4); Microcytosis MODERATE=15-30 cells (100X) (0-5/hpf); Monocytes 8 % (0-10); Neutrophil 52 % (42-75); Ovalocytes SLIGHT = 2-5 cells (100X) (0-1/hpf); Platelet Count 383 thou/uL (130-400); Platelet Morphology Comment Appears Adequate; RBC Distribution Width 15.4 % (11.5-14.5); Red Blood Cell (RBC) Count 3.31 mill/uL (4.70-6.10); Target Cells SLIGHT = 2-5 cells (100X) (0-1/hpf); White Blood Cell (WBC) Count 4.8 thou/uL (4.8-10.8)
[2018-11-15 05:47] LABS: ALT (SGPT) 19 U/L (8-55); AST (SGOT) 37 U/L (5-34); Albumin 2.7 g/dL (3.4-4.8); Alkaline Phosphatase 147 U/L (40-150); Anion Gap 14 mmol/L (10-20); BUN (Urea Nitrogen) 15 mg/dL (8.4-25.7); Bilirubin, Total 0.2 mg/dL (0.2-1.2); Calc. Creatinine Clearance 82 mL/min (70-130); Calcium 8.4 mg/dL (7.8-10.44); Carbon Dioxide 29 mmol/L (23-31); Chloride 102 mmol/L (98-107); Estimated GFR-MDRD 81; Globulin 2.8 g/dL (2.4-3.5); Glucose 89 mg/dL (83-110); Potassium 3.6 mmol/L (3.5-5.1); Protein, Total 5.5 g/dL (5.8-8.1); Sodium 141 mmol/L (136-145)
[2018-11-15] MEDS: Gabapentin 300 MG CAP PO SCH ×2 (08:38→20:56)
[2018-11-15] MEDS: NIFEdipine XL 30 MG TAB PO SCH (08:39)
[2018-11-15] MEDS ORDERED: Milk Of Magnesia 30 ML UDCUP PO PRN (09:40)
--- NOTE | 2018-11-15 10:24 | PRG ---
DATE OF SERVICE: 11/15/2018 SUBJECTIVE: Mr. Messina is an 83-year-old white male, who developed abdominal pain. He went to the emergency room and was found to have a small-bowel obstruction. He was transferred to [facility] and had an EGD, which revealed a duodenal stricture, it was dilated. He was sent home. He did very well for a few days, but returned back to the hospital with the same problems. At this time, he was found to have a bezoar at that stricture site, which was removed by Dr. Carmichael. He dilated it, and then several days later, he dilated it again. Unfortunately, anything that is fibrous hangs up in there. He was seen in consultation by Dr. Jose Blanc, who recommended Christianne-en-Y, but because the patient was so weak that was postponed until he can get stronger and his nutritional status will be better. He was transferred here, and his prealbumin was 7. Total protein and albumin are all decreased. He is on a liquid high-protein diet and that he is slowly getting better. OBJECTIVE: VITAL SIGNS: Reveal blood pressure today 173/79, which is slowly increasing; pulse 62; respirations 20; O2 saturation 95% to 99% on room air; and T-max 98. GENERAL: This is a well-developed, well-nourished, very pleasant white male, in no apparent distress at this time. HEENT: Reveals normocephalic and nontraumatic cranium. Pupils are equal, round, and reactive. Extraocular movements are intact. Nose and throat are slightly dry, but clear. NECK: Supple without masses, nodes, or bruits. CHEST: Clear to auscultation. No rales, rhonchi, or wheezes are heard. HEART: Reveals a regular rate and rhythm without murmurs, gallops, or rubs. ABDOMEN: Soft and nontender without organomegaly. Normal bowel sounds are noted. No rebound or guarding is noted. : Deferred. EXTREMITIES: Reveal no clubbing or cyanosis with trace edema in his left upper arm today. ASSESSMENT: 1. Small-bowel obstruction with stricture. 2. Pyloric channel ulcer. 3. Malnutrition. 4. Anemia. 5. Coronary artery disease, followed by Dr. Mcdonald. 6. Diabetes, type 2. 7. Hypertension. 8. Diabetic peripheral neuropathy. 9. Anemia. 10. Restless legs syndrome. 11. Insomnia. 12. Bezoar, removed by Dr. Carmichael. 13. Hyperlipidemia. 14. Arthritis. 15. Generalized weakness. 16. Pain management. PLAN: 1. The patient will continue with a high protein liquid diet. 2. Dietary consult has been done. 3. Continue present medications. 4. The patient is somewhat constipated. We will order some milk of magnesia. 5. Continue physical therapy and occupational therapy. 6. Continue ProStat daily. 7. Continue to monitor the labs every . Job ID: [id number]
[2018-11-15] MEDS: Carbidopa/Levodopa 25-100 mg Tablet PO SCH (20:56)
[2018-11-15] MEDS: tiZANidine HCl 4 MG TAB PO PRN (20:56)
[2018-11-15] MEDS: Atorvastatin Calcium 10 MG TAB PO SCH (20:56)
[2018-11-15] MEDS: Zolpidem Tartrate 5 MG TAB PO PRN (23:51)
[2018-11-16] MEDS: Acetaminophen 500 MG TAB PO PRN ×4 (05:57→23:30)
[2018-11-16] MEDS: traMADol HCl 50 MG TAB PO PRN ×4 (05:57→23:30)
[2018-11-16] MEDS: NIFEdipine XL 30 MG TAB PO SCH (08:55)
[2018-11-16] MEDS: Gabapentin 300 MG CAP PO SCH ×2 (08:56→20:39)
--- NOTE | 2018-11-16 12:35 | PRG ---
DATE OF SERVICE: 11/16/2018 SUBJECTIVE: Mr. Messina is a very pleasant 83-year-old white male, who presented to [facility] ER with abdominal pain. He was found to have a small-bowel obstruction, transferred to [facility] and was seen by Dr. Carmichael. He had an EGD done and the stricture was dilated. Sent home and did very well for a few days, but then had a repeat problem. He went back to the ER, was admitted to the hospital, had a bezoar removed and sequential EGDs about 2-3 days apart to dilate his very tight stricture. He was seen by Dr. Blanc at [facility]. The surgeon who recommended that he have a Christianne-en-Y. Unfortunately, he was very weak and therefore they transferred him to [facility] for nutritional therapy, physical therapy, and occupational therapy. The patient states he is doing well. He is eating everything, now he is having pretty much normal bowel movements even though he is drinking about 84 g of protein a day. OBJECTIVE: VITAL SIGNS: Reveal blood pressure today was 160/76, pulse 61, respirations 18, O2 saturation 98% on room air, T-max 98.3. Laboratory reveals his total protein has gone from 7 to 19.0. GENERAL: This is a well-developed, well-nourished, very pleasant white male, in no apparent distress at this time. HEENT: Normocephalic and nontraumatic cranium. Pupils are equal, round, reactive. Extraocular movements are intact. Nose and throat are slightly dry. NECK: Supple without masses, nodes, or bruits. CHEST: Clear to auscultation. No rales, rhonchi, wheezes are heard. HEART: Reveals a regular rate and rhythm without murmurs, gallops, or rubs. ABDOMEN: Soft, nontender without organomegaly. Normal bowel sounds are noted. No rebound or guarding is noted. : Deferred. EXTREMITIES: Reveal no clubbing, cyanosis, or edema today. ASSESSMENT: 1. Small-bowel obstruction with stricture. 2. Pyloric channel ulcer. 3. Malnutrition. 4. Anemia. 5. Coronary artery disease, followed by Dr. Mcdonald. 6. Diabetes type 2. 7. Hypertension. 8. Diabetic peripheral neuropathy. 9. Anemia, much improved. 10. Restless legs syndrome. 11. Insomnia. 12. Bezoar removed by Dr. Carmichael. 13. Hyperlipidemia. 14. Arthritis. 15. Pain management. 16. Generalized weakness. PLAN: 1. Continue high liquid protein diet. 2. Dietary consult has been done and appreciated. 3. Continue present medications. 4. Continue physical therapy and occupational therapy. 5. Continue Pro-Stat once daily. 6. Continue to monitor the patient's labs every . Job ID: [id number]
[2018-11-16] MEDS: Atorvastatin Calcium 10 MG TAB PO SCH (20:39)
[2018-11-16] MEDS: Zolpidem Tartrate 5 MG TAB PO SCH (20:40)
[2018-11-16] MEDS: tiZANidine HCl 4 MG TAB PO PRN (20:40)
[2018-11-16] MEDS: Carbidopa/Levodopa 25-100 mg Tablet PO SCH (20:40)
[2018-11-16] MEDS: Zolpidem Tartrate 5 MG TAB PO PRN (23:30)
[2018-11-17] MEDS: Acetaminophen 500 MG TAB PO PRN ×4 (05:27→23:37)
[2018-11-17] MEDS: traMADol HCl 50 MG TAB PO PRN ×4 (05:27→23:36)
[2018-11-17] MEDS: NIFEdipine XL 30 MG TAB PO SCH (08:30)
[2018-11-17] MEDS: Gabapentin 300 MG CAP PO SCH ×2 (08:30→20:58)
--- NOTE | 2018-11-17 14:40 | PRG ---
DATE OF SERVICE: 11/17/2018 SUBJECTIVE: Mr. Luca Messina is doing well. He is up in his chair and just examining some coins to see if there are any collectables. His spouse is in the room. He is tolerating his medications and his diet. OBJECTIVE: VITAL SIGNS: He is afebrile. Heart rate 64, respirations 16, oxygen saturation 99% on room air, and blood pressure 143/74. CARDIOVASCULAR: S1-S2 plus. RESPIRATORY: Normal vesicular breath sounds. ABDOMEN: Soft, nontender. Bowel sounds heard in all quadrants. EXTREMITIES: Without cyanosis, clubbing. Peripheral pulses are palpable. CENTRAL NERVOUS SYSTEM: AAO x3. Cranial nerves 2 through 12 intact. Improving deconditioning. IMPRESSION: 1. Small-bowel obstruction with stricture. 2. Improving malnutrition. 3. Coronary artery disease. 4. Diabetes mellitus type 2. 5. Hypertension. 6. Dyslipidemia. 7. Deconditioning. PLAN: 1. Continue current medications. 2. Continue high-protein diet. 3. Monitor blood sugars and Accu-Cheks. He is not on any Accu-Cheks that I can see. 4. DVT and stress ulcer prophylaxis. 5. Decubitus precautions. 6. Monitor GI system. 7. Routine laboratory values. 8. Discussed with the patient and spouse in detail, and all questions answered. Job ID: [id number]
[2018-11-17] MEDS: tiZANidine HCl 4 MG TAB PO PRN (20:57)
[2018-11-17] MEDS: Carbidopa/Levodopa 25-100 mg Tablet PO SCH (20:58)
[2018-11-17] MEDS: Zolpidem Tartrate 5 MG TAB PO SCH (20:58)
[2018-11-17] MEDS: Atorvastatin Calcium 10 MG TAB PO SCH (20:58)
[2018-11-17] MEDS: Zolpidem Tartrate 5 MG TAB PO PRN (23:37)
[2018-11-18] MEDS: Acetaminophen 500 MG TAB PO PRN ×3 (05:22→17:46)
[2018-11-18] MEDS: traMADol HCl 50 MG TAB PO PRN ×3 (05:23→17:46)
[2018-11-18] MEDS: NIFEdipine XL 30 MG TAB PO SCH (08:13)
[2018-11-18] MEDS: Gabapentin 300 MG CAP PO SCH ×2 (08:14→20:50)
[2018-11-18] MEDS: Atorvastatin Calcium 10 MG TAB PO SCH (20:50)
[2018-11-18] MEDS: Carbidopa/Levodopa 25-100 mg Tablet PO SCH (20:50)
[2018-11-18] MEDS: tiZANidine HCl 4 MG TAB PO PRN (20:50)
[2018-11-18] MEDS: Zolpidem Tartrate 5 MG TAB PO SCH (20:51)
[2018-11-19] MEDS: Zolpidem Tartrate 5 MG TAB PO PRN ×2 (00:40→21:34)
[2018-11-19] MEDS: traMADol HCl 50 MG TAB PO PRN ×5 (00:40→21:33)
[2018-11-19] MEDS: Acetaminophen 500 MG TAB PO PRN ×5 (00:41→21:33)
[2018-11-19] MEDS: NIFEdipine XL 30 MG TAB PO SCH (08:48)
[2018-11-19] MEDS: Gabapentin 300 MG CAP PO SCH ×2 (08:48→19:51)
--- NOTE | 2018-11-19 10:56 | PRG ---
DATE OF SERVICE: 11/19/2018 SUBJECTIVE: Mr. Messina is a pleasant 83-year-old white male, who was transferred to [facility] for PT and OT to increase strength and stamina, but also for nutritional protein boost. He is preparing to undergo a Christianne-en-Y type surgery by Dr. Jose Blanc. He is actually doing very well and he has no complaints today. He is tolerating his high-protein liquid diet well. OBJECTIVE: VITAL SIGNS: Today reveal blood pressure 147/72, pulse 64 to 65, respirations 18 to 20, O2 saturation of 97% on room air, T-max 97.9. GENERAL: This is a well-developed, well-nourished, very pleasant 83-year-old white male, in no apparent distress at this time. HEENT: Reveals normocephalic and nontraumatic cranium. The pupils are equally round and reactive. Extraocular movements are intact. Nose and throat are slightly dry. NECK: Supple without masses, nodes, or bruits. CHEST: Clear to auscultation. No rales, no rhonchi, no wheezes are heard. HEART: Reveals a regular rate and rhythm without murmurs, gallops, or rubs. ABDOMEN: Soft and nontender without organomegaly. Normal bowel sounds are noted. No rebound or guarding noted. Abdomen is somewhat scaphoid. : Deferred. EXTREMITIES: Reveal no clubbing or cyanosis with trace edema in his left lower leg. ASSESSMENT: 1. Small bowel obstruction with stricture. 2. Pyloric channel ulcer. 3. Malnutrition. 4. Anemia. 5. Coronary artery disease followed by Dr. Mcdonald. 6. Diabetes type 2, controlled with diet and exercise. 7. Hypertension. 8. Diabetic peripheral neuropathy. 9. Anemia. 10. Restless legs syndrome. 11. Insomnia. 12. Bezoar removed by Dr. Carmichael. 13. Hyperlipidemia. 14. Arthritis. 15. Generalized weakness. 16. Pain management. PLAN: 1. Continue high-protein diet. 2. I will try to get in touch with Dr. Blanc today and see how well he is doing. 3. Continue present medications. 4. Continue physical therapy and occupational therapy. 5. Continue Pro-Stat once a day. 6. Monitor the patient's labs every . 7. We will order the patient's labs for Monday this week. Job ID: [id number]
[2018-11-19] MEDS: Carbidopa/Levodopa 25-100 mg Tablet PO SCH (19:51)
[2018-11-19] MEDS: Atorvastatin Calcium 10 MG TAB PO SCH (19:51)
[2018-11-19] MEDS: Zolpidem Tartrate 5 MG TAB PO SCH (19:51)
[2018-11-19] MEDS: tiZANidine HCl 4 MG TAB PO PRN (19:51)
[2018-11-20] MEDS: Acetaminophen 500 MG TAB PO PRN ×4 (05:22→23:37)
[2018-11-20] MEDS: traMADol HCl 50 MG TAB PO PRN ×4 (05:23→23:37)
[2018-11-20] MEDS: Gabapentin 300 MG CAP PO SCH ×2 (08:22→20:27)
[2018-11-20] MEDS: NIFEdipine XL 30 MG TAB PO SCH (08:22)
--- NOTE | 2018-11-20 10:39 | PRG ---
DATE OF SERVICE: 11/20/2018 SUBJECTIVE: Mr. Messina is a very pleasant 83-year-old white male. He has been to [facility] twice with duodenal stricture. He is planned to having a Christianne-en-Y type surgery by Dr. Platt, but he was very weak and he was sent to [facility] bed for physical therapy and occupational therapy to increase his strength and stamina and also for nutritional boost. He has actually done very well and drinking 84 g of protein a day on his liquid diet. He is tolerating it very well. I did talk with Dr. Platt yesterday and he would like to see him in his office on Monday at 0915 hours. OBJECTIVE: VITAL SIGNS: Today reveal blood pressure elevated this morning at 174/79, pulse 68, respirations 20, O2 saturation 97% to 100% on room air, and T-max 97.6. GENERAL: This is a well-developed, well-nourished, very pleasant 83-year-old white male, in no apparent distress at this time. HEENT: Reveals normocephalic and nontraumatic cranium. Pupils are equal, round, and reactive. Extraocular movements intact. Nose and throat are slightly dry. NECK: Supple without masses, nodes, or bruits. CHEST: Clear to auscultation. No rales, rhonchi, or wheezes are heard. HEART: Reveals a regular rate and rhythm without murmurs, gallops, or rubs. ABDOMEN: Soft and nontender without organomegaly. Normal bowel sounds are noted. No rebound or guarding is noted. : Deferred. EXTREMITIES: Reveal no clubbing, cyanosis, or edema. ASSESSMENT: 1. Small-bowel obstruction with stricture. 2. Pyloric channel ulcer. 3. Malnutrition. 4. Anemia. 5. Coronary artery disease followed by Dr. Mcdonald. 6. Diabetes type 2, controlled with diet and exercise. 7. Hypertension. 8. Diabetic peripheral neuropathy. 9. Anemia. 10. Restless legs syndrome. 11. Insomnia. 12. Bezoar removed by Dr. Carmichael. 13. Hyperlipidemia. 14. Arthritis. 15. Pain management. 16. Generalized weakness. PLAN: 1. Continue high-protein diet. 2. Dr. Blanc would like to see him in his office on Monday at 9:15 a.m. 3. Continue present medications. 4. Continue PT and OT. 5. Continue Pro-Stat. 6. Monitor the patient's labs every . 7. Labs have been ordered for tomorrow morning. Job ID: [id number]
[2018-11-20] MEDS: Carbidopa/Levodopa 25-100 mg Tablet PO SCH (20:27)
[2018-11-20] MEDS: Zolpidem Tartrate 5 MG TAB PO SCH (20:28)
[2018-11-20] MEDS: tiZANidine HCl 4 MG TAB PO PRN (20:28)
[2018-11-20] MEDS: Atorvastatin Calcium 10 MG TAB PO SCH (20:28)
[2018-11-20] MEDS: Zolpidem Tartrate 5 MG TAB PO PRN (23:38)
[2018-11-21] MEDS: traMADol HCl 50 MG TAB PO PRN ×4 (05:21→22:45)
[2018-11-21] MEDS: Acetaminophen 500 MG TAB PO PRN ×4 (05:21→22:45)
[2018-11-21 05:58] LABS: #Basophils 0.1 thou/uL (0.0-0.2); #Eosinphils 0.2 thou/uL (0.0-0.7); #Lymphocytes 1.6 thou/uL (1.20-3.40); #Monocytes 0.5 thou/uL (0.11-0.59); #Neutrophils 1.9 thou/uL (1.40-6.50); %Basophils 1.3 % (0.0-1.0); %Eosinophils 3.9 % (0.0-10.0); %Lymphocytes 38.9 % (21.0-51.0); %Monocytes 10.8 % (0.0-10.0); %Neutrophils 45.1 % (42.0-75.0); Hemoglobin 8.4 g/dL (14.0-18.0); Mean Corpuscular HGB CONC 29.2 g/dL (32.0-36.0); Mean Corpuscular Hemoglobin 23.4 pg (27.0-31.0); Mean Corpuscular Volume 80.3 fL (78.0-98.0); Mean Platelet Volume 7.6 fL (7.4-10.4); Platelet Count 314 thou/uL (130-400); RBC Distribution Width 15.6 % (11.5-14.5); Red Blood Cell (RBC) Count 3.59 mill/uL (4.70-6.10); White Blood Cell (WBC) Count 4.2 thou/uL (4.8-10.8)
[2018-11-21 06:17] LABS: ALT (SGPT) 13 U/L (8-55); AST (SGOT) 24 U/L (5-34); Alkaline Phosphatase 125 U/L (40-150); Anion Gap 13 mmol/L (10-20); BUN (Urea Nitrogen) 17 mg/dL (8.4-25.7); Bilirubin, Total 0.2 mg/dL (0.2-1.2); Calc. Creatinine Clearance 85 mL/min (70-130); Calcium 8.7 mg/dL (7.8-10.44); Carbon Dioxide 27 mmol/L (23-31); Chloride 103 mmol/L (98-107); Estimated GFR-MDRD 84; Globulin 2.8 g/dL (2.4-3.5); Glucose 85 mg/dL (83-110); Potassium 3.6 mmol/L (3.5-5.1); Protein, Total 5.8 g/dL (5.8-8.1); Sodium 139 mmol/L (136-145)
[2018-11-21] MEDS: NIFEdipine XL 30 MG TAB PO SCH (08:28)
[2018-11-21] MEDS: Gabapentin 300 MG CAP PO SCH ×2 (08:28→20:27)
[2018-11-21 11:45] LABS: Hemoglobin A1c 5.4 % (4.0-6.0)
--- NOTE | 2018-11-21 14:38 | PRG ---
DATE OF SERVICE: 11/21/2018 SUBJECTIVE: Mr. Messina is a well-developed, well-nourished, 83-year-old white male, who is very active. He presented to [facility] twice with a small bowel obstruction, which is basically a duodenal stricture. He was seen by Dr. Carmichael and scoped three times. He was seen by Dr. Blanc and felt to be in need of a Christianne-en-Y, but he was too weak. He was sent to [facility] for PT, OT, and nutritional support. He has actually done very well. His labs today reveal his prealbumin is 24. It started out at 7. His hemoglobin and hematocrit are slowly rising. He is doing well and is scheduled to be discharged tomorrow. OBJECTIVE: VITAL SIGNS: Today reveal blood pressure 149/73, pulse 62 to 68, respirations 18 to 20, and O2 saturations 98% to 99%, and T-max 98.0. GENERAL: This is a well-developed, well-nourished, pleasant white male, in no apparent distress at this time. HEENT: Reveals normocephalic and nontraumatic cranium. Pupils are equal, round, and reactive. Extraocular movements are intact. Nose and throat are slightly dry but clear. NECK: Supple without masses, nodes, or bruits. CHEST: Clear to auscultation. No rales, rhonchi, wheezes, or cough is heard. HEART: Reveals a regular rate and rhythm without murmurs, gallops, or rubs. ABDOMEN: Soft, nontender without organomegaly. Normal bowel sounds are noted in all 4 quadrants. No rebound or guarding is noted. : Deferred. EXTREMITIES: Reveal generalized weakness, but significantly improved. No clubbing, cyanosis, or edema is noted. ASSESSMENT: 1. Small-bowel obstruction with stricture. 2. Pyloric channel ulcer. 3. Malnutrition. 4. Anemia. 5. Coronary artery disease, followed by Dr. Mcdonald. 6. Diabetes, type 2, controlled with diet and exercise. 7. Hypertension. 8. Diabetic peripheral neuropathy. 9. Restless legs syndrome. 10. Insomnia. 11. Bezoar removed by Dr. Carmichael. 12. Hyperlipidemia. 13. Arthritis. 14. Pain management. 15. Generalized weakness. PLAN: 1. Continue high-protein diet. 2. Appointment with Dr. Jose Blanc on Monday at 9:15 a.m. 3. Continue present medications. 4. Continue PT and OT. 5. Continue Pro-Stat. 6. The patient is encouraged to find a liquid iron like Gevrabon or something like that. 7. Monitor the patient's labs next week. 8. Expected discharge tomorrow morning. Job ID: [id number]
[2018-11-21 19:26] VITALS: TEMP 97.9
[2018-11-21] MEDS: Atorvastatin Calcium 10 MG TAB PO SCH (20:27)
[2018-11-21] MEDS: Carbidopa/Levodopa 25-100 mg Tablet PO SCH (20:27)
[2018-11-21] MEDS: Zolpidem Tartrate 5 MG TAB PO SCH (22:44)
[2018-11-22] MEDS: Acetaminophen 500 MG TAB PO PRN ×3 (05:53→17:21)
[2018-11-22] MEDS: traMADol HCl 50 MG TAB PO PRN ×3 (05:53→17:21)
[2018-11-22 08:16] VITALS: BP 162/80
[2018-11-22] MEDS: NIFEdipine XL 30 MG TAB PO SCH (08:32)
[2018-11-22] MEDS: Gabapentin 300 MG CAP PO SCH (08:33)
--- NOTE | 2018-11-23 06:15 | DIS ---
DATE OF ADMISSION: 11/07/2018 DATE OF DISCHARGE: 11/22/2018 SUBJECTIVE: Mr. Messina is a very pleasant, well-developed, well-nourished 83-year-old white male, who presented to the [facility] ER with abdominal pain. He was found to have small-bowel obstruction, transferred to [facility]. He was seen by Dr. Carmichael, had an EGD done and the stricture was dilated. He was sent home and he did very well for several days and had the same problem. He came back to [facility] where he was admitted. Dr. Carmichael did a and did sequential EGDs 2-3 days apart to dilate his very tight stricture. He was seen by Dr. Blanc at [facility] and determined that he needed to have a Christianne-en-Y done because of the stricture. Unfortunately, he was very weak and malnourished, so he was transferred to [facility] for physical therapy, occupational therapy, and nutritional therapy. The patient states he has been doing very well. He has been taking his liquid protein shakes and getting at least 84 g of protein a day. He has gotten his pre-albumin from 7 to 14 to 24. The patient also was barely able to stand, but now he is walking about 700 feet without falling and without having to rest. Overall, the patient is doing very well. He has reached maximum swing bed necessity and is now ready for transfer home. PHYSICAL EXAMINATION: VITAL SIGNS: Today revealed blood pressure 153/74, pulse 65 to 73, respirations 18 to 19, and O2 saturation 98% on room air, T-max 97.9. GENERAL: This is a well-developed, well-nourished, tall and thin white male, in no apparent distress at this time. HEENT: Reveals normocephalic and nontraumatic cranium. Pupils are equal, round, and reactive. Extraocular movements are intact. Nose and throat are slightly dry, but clear. NECK: Supple without masses, nodes, or bruits. CHEST: Clear to auscultation. No rales, no rhonchi, no wheezes, no cough is heard. HEART: Reveals a regular rate and rhythm without murmurs, gallops, or rubs. ABDOMEN: Soft, somewhat scaphoid, still nontender without organomegaly. Normal bowel sounds are noted. No rebound or guarding is noted. : Deferred. EXTREMITIES: Reveal no clubbing or cyanosis. Edema is much improved and pretty much gone since his protein and albumin are up. ASSESSMENT: 1. Small-bowel obstruction with stricture. 2. Pyloric channel ulcer. 3. Malnutrition with mainly protein. 4. Anemia. 5. Coronary artery disease followed by Dr. Mcdonald. 6. Diabetes type 2, controlled with diet and exercise. 7. Hypertension. 8. Diabetic peripheral neuropathy. 9. Restless legs syndrome. 10. Insomnia. 11. Bezoar, removed by Dr. Carmichael. 12. Hyperlipidemia. 13. Arthritis. 14. Pain management. 15. Generalized weakness. PLAN: 1. The patient will be discharged to home today. He will continue on his high-protein liquid diet. 2. The patient has an appointment with Dr. Jose Blanc on Monday at 9:15. 3. Continue present medications. 4. Continue physical therapy and occupational therapy. 5. The patient is encouraged to find liquid iron with vitamins in it that he can drink. 6. Home Health will continue to monitor the patient as needed. 7. Physical Therapy will visit the patient and reassess him at home. 8. Discharge today at 5:31 when his picks him up. Job ID: [id number]
== END 2018-11-22 17:45 | disposition home health service (06) | DRG 381 ==
LOC: NAV ACUTE 13:28
PROVIDERS: ADMIT Family Medicine; ATTEND Family Medicine
DX: K31.5 Obstruction of duodenum (principal); E46 Unspecified protein-calorie malnutrition; K25.9 Gastric ulcer, unspecified as acute or chronic, without hemorrhage or perforation; I25.10 Atherosclerotic heart disease of native coronary artery without angina pectoris; G47.00 Insomnia, unspecified; E11.42 Type 2 diabetes mellitus with diabetic polyneuropathy; D64.9 Anemia, unspecified; G25.81 Restless legs syndrome; I10 Essential (primary) hypertension; M19.90 Unspecified osteoarthritis, unspecified site; E78.5 Hyperlipidemia, unspecified; K21.9 Gastro-esophageal reflux disease without esophagitis; J32.9 Chronic sinusitis, unspecified; R53.1 Weakness; Z98.41 Cataract extraction status, right eye; Z98.42 Cataract extraction status, left eye; Z98.890 Other specified postprocedural states; Z88.5 Allergy status to narcotic agent; Z88.8 Allergy status to other drugs, medicaments and biological substances; Z68.25 Body mass index [BMI] 25.0-25.9, adult
CPT/HCPCS: 36415; 80048; 80053; 83036; 83880; 84134; 85025

== ENCOUNTER 2019-01-01 14:13 | Inpatient (IN) | payer MEDICARE ==
[2019-01-01] MEDS ORDERED: Milk Of Magnesia 30 ML UDCUP PO PRN (16:11)
[2019-01-01] MEDS ORDERED: traMADol HCl 50 MG TAB PO PRN (16:11)
[2019-01-01] MEDS ORDERED: Ondansetron ODT 4 MG TAB PO PRN (16:11)
[2019-01-01] MEDS ORDERED: Acetaminophen 500 MG TAB PO PRN (16:11)
[2019-01-01] MEDS ORDERED: Polyethylene Glycol 3350 17 GM Packet PO PRN (16:11)
[2019-01-01] MEDS ORDERED: diphenhydrAMINE 25 MG CAP PO PRN (16:22)
[2019-01-01] MEDS: HYDROcodone/Acetaminophen 5/325 mg Tablet PO PRN ×2 (16:49→21:08)
[2019-01-01] MEDS: Ibuprofen 100 MG/5 ML UDCUP PO SCH ×2 (16:53→21:07)
[2019-01-01] MEDS ORDERED: Gabapentin 300 MG CAP PO SCH (21:00)
[2019-01-01] MEDS ORDERED: Gabapentin 100 MG CAP PO SCH (21:00)
[2019-01-01] MEDS ORDERED: DICLOFENAC SODIUM PO SCH (21:00)
[2019-01-01] MEDS ORDERED: MISOPROSTOL PO SCH (21:00)
[2019-01-01] MEDS: Metoprolol Tartrate 25 MG TAB PO SCH (21:08)
[2019-01-01] MEDS ORDERED: Calcium Carbonate 500 MG ChewTAB PO PRN (21:22)
[2019-01-01] MEDS: Zolpidem Tartrate 5 MG TAB PO PRN (21:29)
[2019-01-01] MEDS: Atorvastatin Calcium 10 MG TAB PO SCH (22:02)
[2019-01-01] MEDS: Carbidopa/Levodopa 25-250 mg Tablet PO SCH (22:02)
[2019-01-02] MEDS: HYDROcodone/Acetaminophen 5/325 mg Tablet PO PRN ×5 (02:33→19:45)
--- NOTE | 2019-01-02 03:27 | HP ---
HISTORY OF PRESENT ILLNESS: Mr. Messina is a very pleasant 83-year-old white male, who was transferred to [facility] from [facility]. He underwent an antrectomy with truncal vagotomy with a Christianne-en-Y reconstruction. Initially, the patient's operation went well, but he developed some rate controlled atrial fibrillation and potential ileus. He had free air underneath the diaphragm and had to be re-surgerized. NG tube placed revealed almost 3 L of liquid removed. He was placed on TPN and returned to the operating room and was found to have patch areas of gastric necrosis. His anastomosis had to be taken down and a subtotal gastrectomy was performed. He did have a viable rim of stomach near the GE junction and the Christianne limb was anastomosed to his residual stomach. He had a drain that was left in the lesser sac and a jejunostomy tube was placed. Unfortunately, the tube was dislodged and TPN had to be restarted. He stayed in the ICU for several days. Eventually, he was stabilized and now was transferred to inpatient rehab at [facility]. PRESENT MEDICATIONS: Reveals he is presently on the following; Lipitor 10 mg at bedtime, Tums p.r.n., carbidopa 25/250 one tab at evening, Benadryl p.r.n. 25 mg, Lovenox subcu daily, gabapentin 300 mg b.i.d. and at bedtime, hydrocodone one or two tabs q.4 hours, Motrin 400 mg q.i.d. scheduled; 30 mg b.i.d., milk of magnesia p.r.n., metoprolol 25 b.i.d., nifedipine 90 mg daily, Protonix 20 mg daily, MiraLAX p.r.n., Ranexa 500 mg b.i.d., saline flush for his PICC line, tizanidine 4 mg daily p.r.n., vitamins A, C, and E-Lutein and Minerals, Ocuvite with Lutein daily, and Ambien 5 at bedtime p.r.n. PAST MEDICAL HISTORY: Reveals the patient has; 1. Coronary artery disease with multiple stents, I believe up to 9. 2. Diabetes type 2. 3. Diabetic peripheral neuropathy without gangrene. 4. Anemia. 5. Insomnia. 6. GERD. 7. Restless legs syndrome. 8. Hypertension. 9. Arthritis. 10. Hyperlipidemia. 11. Allergies. 12. Chronic sinusitis. PAST SURGICAL HISTORY: 1. Left rotator cuff in 1986. 2. Carpal tunnel release in 1994. 3. Back surgery in 1998. 4. Neck surgery in 2000. 5. Total right knee in 2007. 6. Back surgery for L2 decompression and fusion in 2006. 7. Back stabilization by Dr. Zhang, in 2013. 8. Hammertoe surgery, Dr. Fan, in 2008. 9. Right cataract surgery, Dr. Everett, in 2012. 10. Right cataract surgery revision, Dr. Everett, in 2012. 11. Repair of right eye cataract surgery for incorrect lens, Dr. Everett, in 2014. 12. Cardiac cath with balloon stents x3 with Dr. Mcdonald, in 2015. 13. Cardiac cath in 2016. 14. Excision of basal cell carcinoma by Dr. Blanc in 2016. 15. Right ankle surgery in 2016. 16. Repeat L1-L2 lumbar decompression, Dr. Elder, in 2017. 17. Five bulging disks, Dr. Elder, in 2018. 18. Bone spurs, Dr. Elder, in 2019. 19. Christianne-en-Y and truncal vagotomy construction in 2019. 20. Subtotal gastrectomy with Christianne-en-Y limb anastomosis of the residual stomach in 2019. FAMILY HISTORY: 1. The patient's father at age 82, unknown etiology. 2. The patient's mother at age 81 of aneurysm. The patient has a family history of high cholesterol and heart disease. SOCIAL HISTORY: Reveals the patient does not smoke. The patient does not drink any alcohol. The patient does not use drugs. 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 ALLERGIES: REVEALS THE PATIENT HAS MULTIPLE ALLERGIES INCLUDING; 1. IVP DYE. 2. CLARITIN. 3. ISORDIL TITRATE DOSE. 4. CELEBREX. 5. INDOCIN. 6. VANNESSA INHIBITORS. 7. PRASUGREL. 8. MORPHINE. 9. TAPE. REVIEW OF SYSTEMS: CONSTITUTIONAL: The patient denies fever, chills, or night sweats. The patient has been losing weight and has significant fatigue and weakness. HEENT: The patient denies head injury, headache, change in vision, or change in hearing. RESPIRATORY: The patient denies cough, cold, congestion, wheezing, or shortness of breath. CARDIAC: The patient denies chest pain, dyspnea on exertion, significant edema other than his arms. GI: The patient denies nausea, vomiting, diarrhea, or constipation. : The patient denies nocturia, hematuria, dysuria, incontinence. MUSCULOSKELETAL: The patient has joint swelling and achiness, especially in his knees and his right foot and his back. SKIN: The patient denies skin rashes. PHYSICAL EXAMINATION: GENERAL: This is a well-developed, well-nourished, pleasant 83-year-old, very thin, white male, in no apparent distress at this time. HEENT: Reveals normocephalic and nontraumatic cranium. Pupils are equal, round, and reactive. Extraocular movements are intact. Nose and throat are dry. NECK: Supple without masses, nodes, or bruits. CHEST: Clear to auscultation. No rales, rhonchi, or wheezes are heard. HEART: Reveals a regular rate and rhythm without murmurs, gallops, or rubs. ABDOMEN: Soft, scaphoid, nontender without organomegaly. Normal bowel sounds are heard in all 4 quadrants. No rebound or guarding is noted. No masses are felt. No CVA tenderness. GENITOURINARY: Deferred. EXTREMITIES: Reveals no clubbing, cyanosis, or edema. The patient does have quite a bit of edema in both of his arms from his IVs. No CVA tenderness. NEUROLOGIC: The patient has no focal findings. ASSESSMENT: 1. Christianne-en-Y reconstruction with failure and the patient had to be re-entered with a subtotal gastrectomy and a viable rim of stomach anastomosed to the Christianne limb to his residual stomach. 2. Generalized weakness. 3. Atherosclerosis, followed by Dr. Mcdonald. 4. Diabetes type 2. 5. Diabetic peripheral neuropathy. 6. Anemia. 7. Hypertension. 8. Restless legs syndrome. 9. Arthritis. 10. Hyperlipidemia. 11. Malnutrition. 12. Pain management. PLAN: 1. The patient will have a Dietary consult, Physical Therapy and Occupational Therapy consult. 2. The patient will get at least 80 g of protein every day and lots of liquids. 3. We will do labs tomorrow morning. 4. Supportive care. Job ID: [id number]
[2019-01-02 05:46] LABS: ALT (SGPT) 19 U/L (8-55); AST (SGOT) 33 U/L (5-34); Albumin 2.1 g/dL (3.4-4.8); Alkaline Phosphatase 269 U/L (40-150); Anion Gap 13 mmol/L (10-20); BUN (Urea Nitrogen) 19 mg/dL (8.4-25.7); Bilirubin, Total 0.4 mg/dL (0.2-1.2); Calc. Creatinine Clearance 98 mL/min (70-130); Calcium 7.9 mg/dL (7.8-10.44); Carbon Dioxide 21 mmol/L (23-31); Chloride 108 mmol/L (98-107); Estimated GFR-MDRD 90; Globulin 3.4 g/dL (2.4-3.5); Glucose 83 mg/dL (83-110); Potassium 4.9 mmol/L (3.5-5.1); Protein, Total 5.5 g/dL (5.8-8.1); Sodium 137 mmol/L (136-145)
[2019-01-02 05:48] LABS: #Basophils 0.1 thou/uL (0.0-0.2); #Eosinphils 0.1 thou/uL (0.0-0.7); #Lymphocytes 1.6 thou/uL (1.20-3.40); #Monocytes 0.6 thou/uL (0.11-0.59); #Neutrophils 6.6 thou/uL (1.40-6.50); %Basophils 0.6 % (0.0-1.0); %Eosinophils 1.4 % (0.0-10.0); %Lymphocytes 18.2 % (21.0-51.0); %Monocytes 6.7 % (0.0-10.0); Hemoglobin 7.6 g/dL (14.0-18.0); Hypochromia MODERATE=16-30 cells (100X) (0-5/hpf); MDiff Complete? YES; Mean Corpuscular HGB CONC 29.4 g/dL (32.0-36.0); Mean Corpuscular Hemoglobin 22.8 pg (27.0-31.0); Mean Corpuscular Volume 77.5 fL (78.0-98.0); Mean Platelet Volume 7.2 fL (7.4-10.4); Microcytosis MODERATE=15-30 cells (100X) (0-5/hpf); Platelet Count 472 thou/uL (130-400); Platelet Morphology Comment Appears Adequate; RBC Distribution Width 20.7 % (11.5-14.5); Red Blood Cell (RBC) Count 3.34 mill/uL (4.70-6.10)
[2019-01-02] MEDS: Ibuprofen 100 MG/5 ML UDCUP PO SCH ×4 (07:23→20:12)
--- NOTE | 2019-01-02 08:01 | RAD ---
PORTABLE CHEST: HISTORY: Question CHF. Shortness of breath. FINDINGS: Bilateral effusions and bibasilar atelectasis obscure the lung bases and both hemidiaphragms. Upper lung negron are clear. Vascular markings within normal range. PICC line via the right upper e xtremity overlies the SVC. Heart size within normal range. IMPRESSION: Bibasilar opacifications suggesting bilateral effusions and bibasilar atelectasis or infiltrates. POS: OFF
[2019-01-02] MEDS: Gabapentin 300 MG CAP PO SCH ×3 (08:10→20:12)
[2019-01-02] MEDS: Vit A,C & E/Lutein/Minerals Tablet PO SCH (08:11)
[2019-01-02] MEDS: Enoxaparin Sodium 40 MG/0.4 ML SYRINGE SC SCH (08:11)
[2019-01-02] MEDS: Metoprolol Tartrate 25 MG TAB PO SCH ×2 (08:11→20:12)
[2019-01-02] MEDS: NIFEdipine XL 30 MG TAB PO SCH (08:12)
[2019-01-02] MEDS ORDERED: tiZANidine HCl 4 MG TAB PO PRN (09:00)
[2019-01-02] MEDS ORDERED: Polyethylene Glycol 3350 17 GM Packet PO SCH (09:00)
--- NOTE | 2019-01-02 18:58 | PRG ---
DATE OF SERVICE: 01/02/2019 SUBJECTIVE: Mr. Messina is a very pleasant 83-year-old white male, who was transferred to [facility] from [facility]. He underwent antrectomy and truncal vagotomy with Christianne-en-Y. Unfortunately, reconstruction failed and he developed gastric necrosis. He had to go back in, and they did a subtotal gastrectomy. He had a viable rim of the stomach near the GE junction and his Christianne limb was anastomosed to his residual stomach. Postoperatively, he was in ICU for approximately 2 weeks. He had a jejunostomy tube that was placed, but unfortunately was dislodged after the 1st day. He eventually was stabilized and now transferred to inpatient rehab at [facility] for physical therapy and occupational therapy. LABORATORY DATA: Laboratory reveals WBC is 9000, hemoglobin 7.6, hematocrit 25.9, platelet count 472,000. Sodium 137, potassium 4.9, chloride 108, carbon dioxide 21. His BUN is 19, creatinine 0.82. BNP is 516. Albumin is low at 2.1. Total protein is low at 5.5. The patient's chest x-ray reveals some bilateral pleural effusions. He also has some bibasilar atelectasis. PICC line is noted in the right upper extremity, it is into the superior vena cava. PHYSICAL EXAMINATION: VITAL SIGNS: Today reveal blood pressure 120/56, pulse 64, respirations 20, O2 saturations 95% on room air, and T-max 97.9. GENERAL: This is a well-developed, very thin, 83-year-old white male, who is actually doing very well postop. HEENT: Reveals normocephalic and nontraumatic cranium. Pupils are equal, round, reactive. Nose and throat are still dry. NECK: Supple without masses, nodes, or bruits. CHEST: Clear to auscultation. Some decreased breath sounds are noted in the bases. Most likely secondary to pleural fusions. No rales, no rhonchi, no wheezes are noted. The patient had a little cough last night, but it is better today. HEART: Reveals a regular rate and rhythm. No murmurs, gallops, or rubs are noted. ABDOMEN: Reveals midline scar, which is healing well. It is nontender. Normal bowel sounds are noted. No rebound or guarding is noted. : Deferred. EXTREMITIES: Reveal no clubbing or cyanosis. The patient does have edema in his right upper extremity, less in his left upper extremity. No CVA tenderness is noted. The patient is oriented to person, place, and time. ASSESSMENT: 1. Christianne-en-Y reconstruction, which failed. The patient had to be re-entered with subtotal gastrectomy and viable rim of stomach. It is anastomosed to the Christianne limb to his residual stomach. 2. Atherosclerosis, followed by Dr. Mcdonald. 3. Diabetes, type 2. 4. Diabetic peripheral neuropathy. 5. Anemia. 6. Hypertension. 7. Restless legs syndrome. 8. Arthritis. 9. Hyperlipidemia. 10. Malnutrition. 11. Pain management. PLAN: 1. The patient will have Dietary consult. 2. Physical Therapy and Occupational Therapy started working with the patient. 3. The patient is eating only fair. He does get his 80 g of protein via his Ensure. 4. We will continue to follow the patient's respiratory status. 5. Supportive care. Job ID: [id number]
[2019-01-02] MEDS: Carbidopa/Levodopa 25-250 mg Tablet PO SCH (20:11)
[2019-01-02] MEDS: Atorvastatin Calcium 10 MG TAB PO SCH (20:11)
[2019-01-02] MEDS: Zolpidem Tartrate 5 MG TAB PO PRN (20:57)
[2019-01-03] MEDS: HYDROcodone/Acetaminophen 5/325 mg Tablet PO PRN ×4 (01:48→19:52)
[2019-01-03] MEDS ORDERED: Furosemide 40 MG/4 ML VIAL SLOW IVP SCH (06:30)
[2019-01-03] MEDS: NIFEdipine XL 30 MG TAB PO SCH (07:37)
[2019-01-03] MEDS: Ibuprofen 100 MG/5 ML UDCUP PO SCH ×4 (07:37→21:01)
[2019-01-03] MEDS: Metoprolol Tartrate 25 MG TAB PO SCH ×2 (07:38→21:02)
[2019-01-03] MEDS: Gabapentin 300 MG CAP PO SCH ×3 (07:38→21:01)
[2019-01-03] MEDS: Vit A,C & E/Lutein/Minerals Tablet PO SCH (07:39)
[2019-01-03] MEDS: Enoxaparin Sodium 40 MG/0.4 ML SYRINGE SC SCH (07:41)
--- NOTE | 2019-01-03 07:48 | PRG ---
DATE OF SERVICE: 01/03/2019 Mr. Messina is an 83-year-old white male, who underwent antrectomy and truncal vagotomy with Christianne-en-Y port. The reconstruction failed and developed gastric necrosis. He was taken back for subtotal gastrectomy and had his Christianne-en-Y limb anastomosis with residual stomach. Postoperatively, he was in the ICU several days, where his jejunostomy tube was disrupted. He has been stabilized and now transferred to [facility] for PT and OT. SUBJECTIVE: Last night, the patient states he did not sleep very well because he kept coughing. Chest x-ray the day before did reveal some pleural effusions. He also started having some leak near his elbow or some limp type fluid from the swelling in his arms. We did give him some Lasix 40 IV and elevated that arm. We will also start him on some Robitussin DM for his cough. OBJECTIVE: VITAL SIGNS: Today reveal blood pressure 106/55, pulse 91, respirations 18, O2 saturation 91% on room air, and T-max 96.5. GENERAL: This is a well-developed, well-nourished, pleasant 83-year-old white male. HEENT: Reveals normocephalic and nontraumatic, cranium. Pupils are equal, round, and reactive. Extraocular movements are intact. Nose and throat are still little dry. NECK: Supple without masses, nodes, or bruits. CHEST: Clear to auscultation with decreased breath sounds in the bases secondary to his plerual effusions. No rales, no rhonchi, no wheezes are noted. The patient does have a little dry cough. HEART: Reveals a regular rate and rhythm without murmurs, gallops, or rubs. ABDOMEN: Reveals midline scar. The patient does have a drain site that was found on the right mid abdomen that still has some packing and it looks like it is old. We will get wound care to take a look at that and remove that and repack it. His other incision sites seem to be healing well. Otherwise, normal bowel sounds are noted. No rebound or guarding is noted. GENITOURINARY: Deferred. EXTREMITIES: Reveal no clubbing or cyanosis. The patient does have significant right upper quadrant pain as out of his hand now, but in his elbow area because he propped his hand up and left his elbow down. NEUROLOGIC: The patient is oriented x3. ASSESSMENT: 1. Bilateral plerual effusions. 2. Edema with drainage from his right upper extremity around the elbow. 3. Christianne-en-Y reconstruction, which failed and had a subtotal gastrectomy and a viable rim of the stomach that was reanastomosed to the Christianne limb with the residual stomach. 4. Atherosclerosis. 5. Diabetes, type 2. 6. Hypertension. 7. Anemia. 8. Peripheral neuropathy secondary to diabetes. 9. Restless legs syndrome. 10. Arthritis. 11. Hyperlipidemia. 12. Malnutrition. 13. Pain management. PLAN: 1. The patient will get Lasix 40 mg daily. 2. We will repeat his electrolytes tomorrow morning. 3. Dietary consult. 4. Continue physical therapy and occupational therapy. 5. Encourage the patient to eat 80 g of protein daily. 6. Monitor the patient's respiratory status. 7. Strict I's and O's. 8. Supportive care. Job ID: [id number]
[2019-01-03] MEDS: Guaifenesin DM 100-10/5 ML UDCUP PO PRN ×3 (08:18→21:03)
[2019-01-03] MEDS: Atorvastatin Calcium 10 MG TAB PO SCH (21:01)
[2019-01-03] MEDS: Carbidopa/Levodopa 25-250 mg Tablet PO SCH (21:01)
[2019-01-03] MEDS: Zolpidem Tartrate 5 MG TAB PO PRN (21:02)
[2019-01-04] MEDS: HYDROcodone/Acetaminophen 5/325 mg Tablet PO PRN ×4 (02:09→23:55)
[2019-01-04] MEDS: Guaifenesin DM 100-10/5 ML UDCUP PO PRN ×2 (02:10→19:59)
[2019-01-04] MEDS ORDERED: Sterile Water 10 ML VIAL IVP SCH (07:53)
[2019-01-04] MEDS ORDERED: Activase 2 MG VIAL CATH SCH (07:53)
[2019-01-04] MEDS: Ibuprofen 100 MG/5 ML UDCUP PO SCH ×4 (08:07→21:23)
--- NOTE | 2019-01-04 08:07 | PRG ---
DATE OF SERVICE: 01/04/2019 SUBJECTIVE: Mr. Messina is a very pleasant 83-year-old white male, who underwent antrectomy and truncal vagotomy with Christianne-en-Y. Reconstruction failed and he developed a gastric necrosis. He was taken back for a subtotal gastrectomy and had a Christianne-en-Y limb anastomosed with his residual stomach. Postoperatively, he was in the ICU for several days, where unfortunately his jejunostomy tube was disrupted. He was stabilized and now is transferred to [facility] for PT, OT, and nutritional support. The patient states he slept very well last night and worked hard yesterday in therapy and walked probably 50 feet. Prior chest x-ray did reveal some pleural effusions. Labs this morning was not done because his two-port PICC line has one side completely occluded and the other side is able to flush only. We will use some Cathflo today to see if we can open up that. OBJECTIVE: VITAL SIGNS: Today reveals, blood pressure this morning 130/60, pulse 66 to 69, respirations 20, O2 saturation 92% on room air, T-max 97.7. GENERAL: Well-developed, well-nourished, thin, pleasant white male, in no apparent distress at this time. HEENT: Reveals normocephalic and nontraumatic cranium. Pupils equal, round, and reactive. Extraocular movements are intact. Nose and throat are still little dry. NECK: Supple without masses, nodes, or bruits. CHEST: The patient does have a cough and he has bilateral pleural effusions. We started him on Lasix 40 yesterday with fairly good diuresis because of his swelling in his left arm and a lymphedema type leak at the right elbow, that has decreased in swelling and his lungs sound a little better today. Chest is clear to auscultation. Breath sounds are slightly decreased in both bases secondary to pleural effusion. No rales, rhonchi, or wheezes are heard. HEART: Reveals a regular rate and rhythm without murmurs, gallops, or rubs. ABDOMEN: Reveals a midline scar, which has some drains. The patient does have Klebsiella growing, which is sensitive to Bactrim and Cipro. We will go ahead and cover him with Cipro twice a day for 10 days. Normal bowel sounds are heard. No rebound or guarding is noted. GENITOURINARY: Deferred. EXTREMITIES: Reveals no clubbing or cyanosis. The patient's right upper quadrant swelling is improved, but has little ways to go yet. NEUROLOGIC: The patient isoriented x3. ASSESSMENT: 1. Bilateral pleural effusions. 2. Edema of the right upper extremity with some lymph drainage. 3. Christianne-en-Y reconstruction, which failed and had a subtotal gastrectomy with a viable rim of the stomach and was reanastomosed to the Christianne limb with the residual stomach. 4. Atherosclerosis. 5. Diabetes type 2, stable. 6. Hypertension, stable. 7. Anemia, stable. 8. Peripheral neuropathy secondary to diabetes. 9. Restless legs syndrome. 10. Arthritis. 11. Hyperlipidemia. 12. Malnutrition with low pre-albumin. 13. Pain management. PLAN: 1. Continue Lasix daily. 2. The patient was unable to get his labs today. We will repeat those tomorrow with a pre-albumin. 3. Dietary consult done. 4. Continue PT and OT. 5. Encourage the patient to eat 80 g of protein a day. 6. Monitor the patient's respiratory status. 7. Strict Is and Os. 8. Supportive care. Job ID: [id number]
[2019-01-04] MEDS: Metoprolol Tartrate 25 MG TAB PO SCH ×2 (08:09→21:28)
[2019-01-04] MEDS: Gabapentin 300 MG CAP PO SCH ×2 (08:13→15:05)
[2019-01-04] MEDS: Vit A,C & E/Lutein/Minerals Tablet PO SCH (08:14)
[2019-01-04] MEDS: NIFEdipine XL 30 MG TAB PO SCH (08:15)
[2019-01-04] MEDS: Enoxaparin Sodium 40 MG/0.4 ML SYRINGE SC SCH (08:17)
[2019-01-04 11:11] LABS: #Eosinphils 0.2 thou/uL (0.0-0.7); #Lymphocytes 1.4 thou/uL (1.20-3.40); #Monocytes 0.4 thou/uL (0.11-0.59); #Neutrophils 5.4 thou/uL (1.40-6.50); %Basophils 0.6 % (0.0-1.0); %Eosinophils 2.6 % (0.0-10.0); %Lymphocytes 19.3 % (21.0-51.0); %Monocytes 5.1 % (0.0-10.0); %Neutrophils 72.4 % (42.0-75.0); Hemoglobin 6.7 g/dL (14.0-18.0); Mean Corpuscular HGB CONC 30.7 g/dL (32.0-36.0); Mean Corpuscular Hemoglobin 23.6 pg (27.0-31.0); Mean Corpuscular Volume 76.8 fL (78.0-98.0); Mean Platelet Volume 7.1 fL (7.4-10.4); Platelet Count 403 thou/uL (130-400); RBC Distribution Width 20.6 % (11.5-14.5); Red Blood Cell (RBC) Count 2.83 mill/uL (4.70-6.10); White Blood Cell (WBC) Count 7.4 thou/uL (4.8-10.8)
[2019-01-04 11:17] LABS: Anion Gap 13 mmol/L (10-20); BUN (Urea Nitrogen) 20 mg/dL (8.4-25.7); Calc. Creatinine Clearance 68 mL/min (70-130); Calcium 7.6 mg/dL (7.8-10.44); Carbon Dioxide 22 mmol/L (23-31); Chloride 105 mmol/L (98-107); Estimated GFR-MDRD 59; Glucose 82 mg/dL (83-110); Sodium 135 mmol/L (136-145)
[2019-01-04] MEDS ORDERED: Albuterol Sulfate 2.5 mg/3 ml Neb NEB PRN (19:45)
--- NOTE | 2019-01-04 19:56 | RAD ---
Exam: Chest one view HISTORY:Hypoxia Comparison: 01/02/2019 FINDINGS: Cardiac silhouette: Normal Pulmonary vessels: Slightly prominent Costophrenic angles: Bilateral pleural effusions. LUNGS: Right basilar opacifications due to atelectasis, pneumonia or aspiration. Pneumothorax: None Right sided PICC line is stable Osseous abnormalities: None IMPRESSION: No significant interval change. Persistent bibasilar opacities.
[2019-01-04 20:00] LABS: #Eosinphils 0.2 thou/uL (0.0-0.7); #Lymphocytes 1.6 thou/uL (1.20-3.40); #Monocytes 0.4 thou/uL (0.11-0.59); #Neutrophils 3.5 thou/uL (1.40-6.50); %Basophils 0.6 % (0.0-1.0); %Eosinophils 3.4 % (0.0-10.0); %Lymphocytes 28.3 % (21.0-51.0); %Monocytes 6.5 % (0.0-10.0); %Neutrophils 61.2 % (42.0-75.0); Hemoglobin 6.6 g/dL (14.0-18.0); Mean Corpuscular HGB CONC 30.8 g/dL (32.0-36.0); Mean Corpuscular Hemoglobin 23.6 pg (27.0-31.0); Mean Corpuscular Volume 76.7 fL (78.0-98.0); Mean Platelet Volume 7.2 fL (7.4-10.4); Platelet Count 391 thou/uL (130-400); RBC Distribution Width 20.4 % (11.5-14.5); Red Blood Cell (RBC) Count 2.79 mill/uL (4.70-6.10); White Blood Cell (WBC) Count 5.8 thou/uL (4.8-10.8)
[2019-01-04 20:01] LABS: Anion Gap 13 mmol/L (10-20); BUN (Urea Nitrogen) 20 mg/dL (8.4-25.7); Calc. Creatinine Clearance 69 mL/min (70-130); Calcium 7.5 mg/dL (7.8-10.44); Carbon Dioxide 23 mmol/L (23-31); Chloride 106 mmol/L (98-107); Estimated GFR-MDRD 60; Glucose 80 mg/dL (83-110); Potassium 4.1 mmol/L (3.5-5.1); Sodium 138 mmol/L (136-145)
[2019-01-04] MEDS: Atorvastatin Calcium 10 MG TAB PO SCH (21:25)
[2019-01-04] MEDS: Carbidopa/Levodopa 25-250 mg Tablet PO SCH (21:25)
[2019-01-04] MEDS ORDERED: Furosemide 20 MG/2 ML VIAL SLOW IVP SCH (22:00)
[2019-01-05 05:41] LABS: #Eosinphils 0.1 thou/uL (0.0-0.7); #Lymphocytes 1.8 thou/uL (1.20-3.40); #Monocytes 0.3 thou/uL (0.11-0.59); #Neutrophils 3.3 thou/uL (1.40-6.50); %Basophils 0.9 % (0.0-1.0); %Eosinophils 1.9 % (0.0-10.0); %Lymphocytes 32.8 % (21.0-51.0); %Monocytes 5.4 % (0.0-10.0); %Neutrophils 59.1 % (42.0-75.0); Hemoglobin 7.3 g/dL (14.0-18.0); Hypochromia MODERATE=16-30 cells (100X) (0-5/hpf); MDiff Complete? YES; Mean Corpuscular HGB CONC 31.1 g/dL (32.0-36.0); Mean Corpuscular Hemoglobin 24.3 pg (27.0-31.0); Mean Platelet Volume 7.5 fL (7.4-10.4); Microcytosis MODERATE=15-30 cells (100X) (0-5/hpf); Platelet Count 364 thou/uL (130-400); Platelet Morphology Comment Appears Adequate; RBC Distribution Width 20.6 % (11.5-14.5); Red Blood Cell (RBC) Count 3.02 mill/uL (4.70-6.10); White Blood Cell (WBC) Count 5.5 thou/uL (4.8-10.8)
[2019-01-05 05:55] LABS: Anion Gap 12 mmol/L (10-20); BUN (Urea Nitrogen) 20 mg/dL (8.4-25.7); Calc. Creatinine Clearance 67 mL/min (70-130); Calcium 7.4 mg/dL (7.8-10.44); Carbon Dioxide 24 mmol/L (23-31); Chloride 106 mmol/L (98-107); Estimated GFR-MDRD 59; Glucose 78 mg/dL (83-110); Potassium 4.5 mmol/L (3.5-5.1); Sodium 137 mmol/L (136-145)
[2019-01-05] MEDS: HYDROcodone/Acetaminophen 5/325 mg Tablet PO PRN ×3 (07:04→19:16)
[2019-01-05] MEDS: Enoxaparin Sodium 40 MG/0.4 ML SYRINGE SC SCH (08:29)
[2019-01-05] MEDS: Ibuprofen 100 MG/5 ML UDCUP PO SCH ×4 (08:29→21:16)
[2019-01-05] MEDS: Metoprolol Tartrate 25 MG TAB PO SCH ×2 (08:30→21:15)
[2019-01-05] MEDS: NIFEdipine XL 30 MG TAB PO SCH (08:30)
[2019-01-05] MEDS: Vit A,C & E/Lutein/Minerals Tablet PO SCH (08:31)
[2019-01-05] MEDS ORDERED: Furosemide 20 MG/2 ML VIAL SLOW IVP SCH (13:45)
--- NOTE | 2019-01-05 14:04 | PRG ---
DATE OF SERVICE: 01/05/2019 SUBJECTIVE: Mr. Messina is doing better this morning. He apparently was somnolent yesterday and hypoxemic, requiring oxygen. He was fatigued. I ordered a stat chest x-ray and routine labs. His hemoglobin came back at 6.6. It apparently was 6.7 early in the morning, but no one was informed. I ordered 1 unit of blood transfusion and because his BNP was 820, Lasix 20 mg IV. This morning, his hemoglobin is 7.3. He is having multiple bowel movements, but denies any lightheadedness, dizziness, chest pain, or shortness of breath. No family at bedside discussed with nursing. OBJECTIVE: VITAL SIGNS: He is afebrile. Heart rate is 62, respirations 20, oxygen saturation 91% on 2 L, and blood pressure 129/58. CARDIOVASCULAR: S1 and S2 plus. RESPIRATORY: Normal vesicular breath sounds. ABDOMEN: Soft, nontender. Bowel sounds heard in all quadrants. EXTREMITIES: Without cyanosis or clubbing. CENTRAL NERVOUS SYSTEM: Awake and responsive. Cranial nerves 2 through 12 intact. Generalized weakness. LABORATORY DATA: As stated. His hemoglobin is 7.3, white count is 5.5. Sodium 137, potassium 4.5, BUN and creatinine are 20 and 1.19. BNP is 828.8 and then this morning is 1066.8. IMPRESSION: 1. Diabetes mellitus type 2. 2. Hypertension. 3. Dyslipidemia. 4. Status post subtotal gastrectomy. 5. Bilateral pleural effusions. 6. Anemia, requiring blood transfusion. 7. Elevated BNP. PLAN: 1. Give him another unit of blood and give him Lasix 20 mg IV prior to blood transfusion. 2. Continue other medications. 3. Titrate oxygen. 4. Nutritional support. 5. DVT and stress ulcer prophylaxis. 6. Decubitus precautions. 7. Recheck labs in the morning. 8. Physical therapy. 9. Discussed with the patient and nursing in detail. All questions answered. Job ID: [id number]
[2019-01-05] MEDS: Atorvastatin Calcium 10 MG TAB PO SCH (21:15)
[2019-01-05] MEDS: Carbidopa/Levodopa 25-250 mg Tablet PO SCH (21:15)
[2019-01-05] MEDS: Guaifenesin DM 100-10/5 ML UDCUP PO PRN (21:16)
[2019-01-06] MEDS: HYDROcodone/Acetaminophen 5/325 mg Tablet PO PRN ×4 (03:52→18:52)
[2019-01-06 05:24] LABS: Eosinophils 2 % (0-10); Hemoglobin 8.5 g/dL (14.0-18.0); Hypochromia MODERATE=16-30 cells (100X) (0-5/hpf); Lymphocytes 22 % (21-51); MDiff Complete? YES; Mean Corpuscular HGB CONC 30.2 g/dL (32.0-36.0); Mean Corpuscular Hemoglobin 23.9 pg (27.0-31.0); Mean Corpuscular Volume 78.9 fL (78.0-98.0); Mean Platelet Volume 7.3 fL (7.4-10.4); Microcytosis MODERATE=15-30 cells (100X) (0-5/hpf); Monocytes 4 % (0-10); Neutrophil 72 % (42-75); Ovalocytes SLIGHT = 2-5 cells (100X) (0-1/hpf); Platelet Count 349 thou/uL (130-400); RBC Distribution Width 19.7 % (11.5-14.5); Red Blood Cell (RBC) Count 3.58 mill/uL (4.70-6.10); Stomatocytes SLIGHT = 2-5 cells (100X) (0-1/hpf); Target Cells SLIGHT = 2-5 cells (100X) (0-1/hpf); White Blood Cell (WBC) Count 5.5 thou/uL (4.8-10.8)
[2019-01-06 05:32] LABS: Anion Gap 13 mmol/L (10-20); BUN (Urea Nitrogen) 21 mg/dL (8.4-25.7); Calc. Creatinine Clearance 72 mL/min (70-130); Calcium 7.4 mg/dL (7.8-10.44); Carbon Dioxide 22 mmol/L (23-31); Chloride 106 mmol/L (98-107); Estimated GFR-MDRD 63; Glucose 79 mg/dL (83-110); Potassium 4.2 mmol/L (3.5-5.1); Sodium 137 mmol/L (136-145)
[2019-01-06] MEDS: Ibuprofen 100 MG/5 ML UDCUP PO SCH ×4 (08:26→21:17)
[2019-01-06] MEDS: Enoxaparin Sodium 40 MG/0.4 ML SYRINGE SC SCH (08:26)
[2019-01-06] MEDS: Metoprolol Tartrate 25 MG TAB PO SCH ×2 (08:26→21:18)
[2019-01-06] MEDS: NIFEdipine XL 30 MG TAB PO SCH (08:27)
[2019-01-06] MEDS: Vit A,C & E/Lutein/Minerals Tablet PO SCH (08:28)
[2019-01-06] MEDS ORDERED: Furosemide 40 MG/4 ML VIAL SLOW IVP SCH (14:30)
--- NOTE | 2019-01-06 14:34 | PRG ---
DATE OF SERVICE: 01/06/2019 SUBJECTIVE: Mr. Messina is doing well. His bowel movements have slowed down. He is tolerating p.o. intake. Denies any lightheadedness or dizziness. Denies any PND or orthopnea. OBJECTIVE: VITAL SIGNS: He is afebrile. Heart rate 66, respirations 19, oxygen saturation 91% on 4 L, and blood pressure 133/63. CARDIOVASCULAR: S1 and S2 plus. RESPIRATORY: Normal vesicular breath sounds with occasional crackles. ABDOMEN: Soft and nontender. Bowel sounds heard in all quadrants. EXTREMITIES: Still with about 2+ pitting edema. CENTRAL NERVOUS SYSTEM: Awake and responsive. Cranial nerves 2 through 12 intact. LABORATORY VALUES: White count is 5.5, H and H is 8.5 and 28.2. Sodium 137, potassium 4.2, BUN and creatinine are 21 and 1.11. IMPRESSION: 1. Anemia, much improved after blood transfusion. 2. Status post extensive abdominal surgery. 3. Diabetes mellitus type 2. 4. Hypertension. 5. Dyslipidemia. 6. Bilateral pleural effusion and elevated BNP suggesting heart failure. Reviewing his chart, I do not see any echocardiogram recently. PLAN: 1. Trial of IV Lasix daily. 2. Titrate oxygen. 3. Encourage p.o. intake. 4. Routine laboratory values. 5. Physical therapy. 6. Accu-Cheks with sliding scale coverage. 7. Discussed with the patient and nursing in detail. All questions answered. Job ID: [id number]
[2019-01-06] MEDS: Atorvastatin Calcium 10 MG TAB PO SCH (21:18)
[2019-01-06] MEDS: Carbidopa/Levodopa 25-250 mg Tablet PO SCH (21:18)
[2019-01-06] MEDS: Zolpidem Tartrate 5 MG TAB PO PRN (23:02)
[2019-01-07 05:31] LABS: Anion Gap 10 mmol/L (10-20); BUN (Urea Nitrogen) 18 mg/dL (8.4-25.7); Calc. Creatinine Clearance 88 mL/min (70-130); Calcium 7.5 mg/dL (7.8-10.44); Carbon Dioxide 25 mmol/L (23-31); Chloride 106 mmol/L (98-107); Estimated GFR-MDRD 80; Glucose 72 mg/dL (83-110); Sodium 138 mmol/L (136-145)
[2019-01-07] MEDS: HYDROcodone/Acetaminophen 5/325 mg Tablet PO PRN ×4 (07:44→21:21)
[2019-01-07] MEDS: Ibuprofen 100 MG/5 ML UDCUP PO SCH ×4 (07:46→21:20)
[2019-01-07] MEDS: Enoxaparin Sodium 40 MG/0.4 ML SYRINGE SC SCH (09:18)
[2019-01-07] MEDS: Metoprolol Tartrate 25 MG TAB PO SCH ×2 (09:19→21:20)
[2019-01-07] MEDS: Furosemide 40 MG/4 ML VIAL SLOW IVP SCH (09:19)
[2019-01-07] MEDS: Vit A,C & E/Lutein/Minerals Tablet PO SCH (09:19)
[2019-01-07] MEDS: NIFEdipine XL 30 MG TAB PO SCH (09:20)
--- NOTE | 2019-01-07 10:43 | PRG ---
DATE OF SERVICE: 01/07/2019 SUBJECTIVE: Mr. Messina is an 83-year-old white male, who underwent antrectomy and truncal vagotomy with Christianne-en-Y. Reconstruction failed because he developed gastric necrosis. Taken back for subtotal gastrectomy and had a Christianne-en-Y limb anastomosed with his residual stomach. Postoperatively, he is very weak and was in ICU several days. Now, he had a jejunostomy tube, which was disrupted, and now, he is transferred to [facility] for PT, OT, nutritional support. The patient states he did not have a very good weekend because he feels bored. He is supposed to have physical therapy and already did have therapy this morning and walked 220 feet with 2 rest stops. Over the weekend, he developed some congestive heart failure and was started on Lasix 40 daily. LABORATORY DATA: Reveals hemoglobin 8.5, hematocrit 28.2, which is much improved after 2 units of packed red blood cells. The patient has a pre-albumin of 8.0, which is terrible. The patient's BNP is going down from 1066 to 751. The patient's potassium is 3.0. We did start him on potassium chloride 20 mEq twice a day. The patient is also ordering Zyrtec 10 mg daily for his allergies. OBJECTIVE: VITAL SIGNS: Revealed blood pressure of 160/69, pulse 70 to 72, respirations 20, O2 saturation 94% on 4 L, temperature is 97.8. GENERAL: This is a well-developed, well-nourished, thin, white male, in no apparent distress at this time. HEENT: Normocephalic, nontraumatic cranium. Pupils are equal, round, and reactive. Extraocular movements are intact. Nose and throat are slightly dry. NECK: Supple without masses, nodes, or bruits. CHEST: Clear to auscultation. No rales, rhonchi, wheezes, or cough is noted. Occasional crackles noted in the bases again. ABDOMEN: Soft, nontender without organomegaly. Normal bowel sounds are noted in all 4 quadrants. No rebound or guarding is noted. : Deferred. EXTREMITIES: 2+ edema still in the lower extremities. NEUROLOGIC: The patient is oriented to person, place, and time. IMPRESSION: 1. Anemia, still improved with blood transfusion. 2. Status post abdominal surgery. 3. Diabetes type 2, improved. 4. Hypertension. 5. Hyperlipidemia. 6. Malnourished with pre-albumin of 8. 7. Bilateral pleural effusions and elevated BNP, which is improving. PLAN: 1. Continue Lasix 40 daily. 2. Titrate oxygen p.r.n. 3. Encourage p.o. intake. 4. Continue routine labs most likely Monday. 5. Accu-Cheks with sliding scale. 6. Continue to follow the patient clinically. Job ID: [id number]
[2019-01-07] MEDS: Potassium Chloride 20 MEQ TAB PO SCH (17:16)
[2019-01-07] MEDS ORDERED: Gabapentin 300 MG CAP PO SCH (20:30)
[2019-01-07] MEDS: Atorvastatin Calcium 10 MG TAB PO SCH (21:19)
[2019-01-07] MEDS: Gabapentin 300 MG CAP PO SCH (21:20)
[2019-01-07] MEDS: Carbidopa/Levodopa 25-250 mg Tablet PO SCH (21:20)
[2019-01-07] MEDS: Zolpidem Tartrate 5 MG TAB PO PRN (22:31)
[2019-01-08] MEDS: Potassium Chloride 20 MEQ TAB PO SCH ×2 (07:17→16:01)
[2019-01-08] MEDS: Ibuprofen 100 MG/5 ML UDCUP PO SCH ×4 (07:18→20:27)
[2019-01-08] MEDS: HYDROcodone/Acetaminophen 5/325 mg Tablet PO PRN ×4 (07:20→20:28)
[2019-01-08] MEDS: Guaifenesin DM 100-10/5 ML UDCUP PO PRN (07:31)
[2019-01-08] MEDS: Furosemide 40 MG/4 ML VIAL SLOW IVP SCH (09:44)
[2019-01-08] MEDS: Enoxaparin Sodium 40 MG/0.4 ML SYRINGE SC SCH (09:44)
[2019-01-08] MEDS: Vit A,C & E/Lutein/Minerals Tablet PO SCH (09:46)
[2019-01-08] MEDS: Gabapentin 300 MG CAP PO SCH ×3 (09:46→20:27)
[2019-01-08] MEDS: Metoprolol Tartrate 25 MG TAB PO SCH ×2 (09:46→20:28)
[2019-01-08] MEDS: NIFEdipine XL 30 MG TAB PO SCH (09:46)
[2019-01-08] MEDS ORDERED: Loperamide HCl 2 MG CAP PO PRN (10:24)
[2019-01-08] MEDS ORDERED: Loperamide HCl 2 MG CAP PO SCH (10:30)
--- NOTE | 2019-01-08 19:15 | PRG ---
DATE OF SERVICE: 01/08/2019 SUBJECTIVE: Mr. Messina is a pleasant 83-year-old white male who underwent antrectomy and truncal vagotomy with a Christinane-en-Y. 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 He was taken back and had a subtotal gastrectomy and had to have a Christianne-en-Y limb anastomosed with his residual stomach. Postoperatively, he has been very weak. He has actually done very well after he was discharged out of ICU. He has been transferred to [facility] for physical therapy and occupational therapy and nutritional support. The patient states he is feeling kind of tired this morning and is having pasty stools. He has had two pasty stools yesterday, but no juan watery diarrhea yet. He is asking for some Imodium A-D. Otherwise, he states he is doing fairly well. Over the weekend, he did develop some congestive heart failure and was started on Lasix 40 mg twice daily. PHYSICAL EXAMINATION: VITAL SIGNS: Reveal blood pressure 153/67, pulse 18 to 20, O2 saturation 95% on room air, and T-max 98.2. GENERAL: This is a well-developed, well-nourished, thin, emaciated-looking white male, in no apparent distress at this time. HEENT: Reveals normocephalic and nontraumatic cranium. Pupils are equal, round, reactive. Extraocular movements are intact. Nose and throat are slightly dry. NECK: Supple without masses, nodes, or bruits. CHEST: Clear to auscultation. Occasional crackles were still noted in the bases. ABDOMEN: Soft, nontender, somewhat scaphoid. Normal bowel sounds are noted. : No rebound or guarding is noted. : Deferred. EXTREMITIES: Reveal 2+ edema some in the lower extremities and some in the upper extremities. NEUROLOGIC: He is oriented to person, place, and time. IMPRESSION: 1. Anemia, which has improved with blood transfusion. 2. Status post abdominal surgery. 3. Diabetes, type 2, improved. 4. Hypertension. 5. Hyperlipidemia. 6. Malnourished with a pre-albumin of 8. 7. Bilateral pleural effusions, elevated BNP, which is improving with the Lasix. PLAN: 1. Continue Lasix 40 daily. 2. Titrate oxygen p.r.n. 3. Encourage p.o. intake. 4. Continue routine labs. 5. Accu-Cheks with sliding scale. 6. Continue to follow the patient clinically. Job ID: [id number]
[2019-01-08] MEDS: Carbidopa/Levodopa 25-250 mg Tablet PO SCH (20:27)
[2019-01-08] MEDS: Atorvastatin Calcium 10 MG TAB PO SCH (20:27)
[2019-01-08] MEDS: Zolpidem Tartrate 5 MG TAB PO PRN (22:03)
[2019-01-09] MEDS: HYDROcodone/Acetaminophen 5/325 mg Tablet PO PRN ×4 (05:09→20:13)
[2019-01-09] MEDS: Metoprolol Tartrate 25 MG TAB PO SCH ×2 (07:59→20:19)
[2019-01-09] MEDS: NIFEdipine XL 30 MG TAB PO SCH (07:59)
[2019-01-09] MEDS: Gabapentin 300 MG CAP PO SCH ×3 (07:59→20:11)
[2019-01-09] MEDS: Vit A,C & E/Lutein/Minerals Tablet PO SCH (07:59)
[2019-01-09] MEDS: Potassium Chloride 20 MEQ TAB PO SCH ×2 (08:03→16:00)
[2019-01-09] MEDS: Enoxaparin Sodium 40 MG/0.4 ML SYRINGE SC SCH (08:04)
[2019-01-09] MEDS: Ibuprofen 100 MG/5 ML UDCUP PO SCH (08:04)
[2019-01-09] MEDS ORDERED: Loratadine 10 MG TAB PO SCH (09:00)
[2019-01-09] MEDS ORDERED: diphenhydrAMINE 25 MG CAP PO PRN (11:40)
[2019-01-09] MEDS ORDERED: Acetaminophen 500 MG TAB PO PRN (11:40)
[2019-01-09] MEDS ORDERED: Milk Of Magnesia 30 ML UDCUP PO PRN (11:41)
[2019-01-09] MEDS ORDERED: Polyethylene Glycol 3350 17 GM Packet PO PRN (11:42)
[2019-01-09] MEDS ORDERED: Calcium Carbonate 500 MG ChewTAB PO PRN (11:44)
[2019-01-09] MEDS ORDERED: Guaifenesin DM 100-10/5 ML UDCUP PO PRN (11:44)
[2019-01-09] MEDS ORDERED: Loperamide HCl 2 MG CAP PO PRN (11:45)
[2019-01-09] MEDS ORDERED: Albuterol Sulfate 2.5 mg/3 ml Neb NEB PRN (11:45)
[2019-01-09] MEDS ORDERED: Ibuprofen 100 MG/5 ML UDCUP PO SCH (12:00)
--- NOTE | 2019-01-09 14:29 | PRG ---
DATE OF SERVICE: 01/09/2019 Mr. Messina is a very pleasant 83-year-old white male, who presented to [facility] and had to undergo antrectomy and truncal vagotomy for bleeding. He had a Christianne-en-Y done. Unfortunately, the reconstruction failed and he developed a gastric necrosis. He was taken back to the surgical suite and ended up with a subtotal gastrectomy along with Christianne-en-Y limb anastomosed to his residual stomach. Postoperatively, he was very weak and actually spent several days in the ICU. He eventually was stabilized and now was transferred to [facility] for physical therapy and occupational therapy, and nutritional support. SUBJECTIVE: The patient states he still feels very tired. His prealbumin was 8. He is eating only fairly well. He has had some loose stools that are kind of pasty, but only three yesterday for his total. He has only had one already this morning. He states he is slowly getting stronger. I did talk with Physical Therapy and they state that he is making good progress for how weak he has been. He has no specific complaints today. PHYSICAL EXAMINATION: VITAL SIGNS: Reveal blood pressure 117/56, pulse 56, respirations 16, O2 saturation 97% to 100% on room air, T-max 97.6. GENERAL: On physical exam, this is a well-developed, well-nourished, thin white male, in no apparent distress at this time. HEENT: Reveals normocephalic and nontraumatic cranium. Pupils are equal, round, and reactive. Extraocular movements are intact. Nose and throat are slightly dry, but clear. NECK: Supple without masses, nodes, or bruits. CHEST: Clear to auscultation. No rales, rhonchi, or wheezes are heard. HEART: Reveals a regular rate and rhythm without murmurs, gallops, or rubs. ABDOMEN: Soft and nontender. No organomegaly is noted. It is somewhat scaphoid. Normal bowel sounds are noted. No rebound or guarding is noted. GENITOURINARY: Deferred. EXTREMITIES: Reveal still 2+ edema in the lower extremities. NEUROLOGIC: He is oriented to person, place, and time. IMPRESSION: 1. Anemia, which continues to slowly improve. 2. Status post significant abdominal surgery. 3. Diabetes, type 2. 4. Hypertension. 5. Hyperlipidemia. 6. Malnourishment with prealbumin of 8. 7. Bilateral pleural effusions, elevated BNP, which is improving with Lasix. PLAN: 1. Continue Lasix 40 mg daily. 2. Labs most likely tomorrow. 3. Encourage the patient to continue his p.o. intake. 4. Monitor the patient's diarrhea. 5. Continue routine labs. 6. Accu-Cheks with sliding scale. 7. Continue to follow the patient clinically. Job ID: [id number]
[2019-01-09] MEDS: Ibuprofen 200 MG TAB PO SCH ×2 (15:49→20:11)
[2019-01-09] MEDS: Atorvastatin Calcium 10 MG TAB PO SCH (20:11)
[2019-01-09] MEDS: Carbidopa/Levodopa 25-250 mg Tablet PO SCH (20:11)
[2019-01-09] MEDS: Zolpidem Tartrate 5 MG TAB PO PRN (21:11)
[2019-01-10 05:59] LABS: #Eosinphils 0.3 thou/uL (0.0-0.7); #Lymphocytes 1.9 thou/uL (1.20-3.40); #Monocytes 0.4 thou/uL (0.11-0.59); #Neutrophils 2.5 thou/uL (1.40-6.50); %Basophils 0.9 % (0.0-1.0); %Eosinophils 5.2 % (0.0-10.0); %Lymphocytes 37.9 % (21.0-51.0); %Monocytes 7.2 % (0.0-10.0); %Neutrophils 48.8 % (42.0-75.0); Hemoglobin 9.1 g/dL (14.0-18.0); Mean Corpuscular HGB CONC 29.9 g/dL (32.0-36.0); Mean Corpuscular Volume 80.4 fL (78.0-98.0); Mean Platelet Volume 7.5 fL (7.4-10.4); Platelet Count 286 thou/uL (130-400); RBC Distribution Width 20.5 % (11.5-14.5); Red Blood Cell (RBC) Count 3.77 mill/uL (4.70-6.10); White Blood Cell (WBC) Count 5.1 thou/uL (4.8-10.8)
[2019-01-10 06:00] LABS: Hypochromia SLIGHT = 6-15 cells (100X) (0-5/hpf); MDiff Complete? YES; Microcytosis SLIGHT = 6-15 cells (100X) (0-5/hpf); Platelet Morphology Comment Appears Adequate
[2019-01-10] MEDS: Activase 2 MG VIAL CATH SCH ×2 (07:09→08:07)
[2019-01-10] MEDS: Sterile Water 10 ML VIAL IVP SCH ×2 (07:12→08:07)
[2019-01-10] MEDS ORDERED: Activase 2 MG VIAL CATH SCH (07:30)
[2019-01-10] MEDS: NIFEdipine XL 30 MG TAB PO SCH (08:21)
[2019-01-10] MEDS: Ibuprofen 200 MG TAB PO SCH ×4 (08:21→20:43)
[2019-01-10] MEDS: Metoprolol Tartrate 25 MG TAB PO SCH ×2 (08:22→20:42)
[2019-01-10] MEDS: Potassium Chloride 20 MEQ TAB PO SCH ×2 (08:23→16:44)
[2019-01-10] MEDS: Vit A,C & E/Lutein/Minerals Tablet PO SCH (08:23)
[2019-01-10] MEDS: Gabapentin 300 MG CAP PO SCH ×3 (08:23→20:42)
[2019-01-10] MEDS: Enoxaparin Sodium 40 MG/0.4 ML SYRINGE SC SCH (08:23)
[2019-01-10] MEDS: HYDROcodone/Acetaminophen 5/325 mg Tablet PO PRN ×4 (08:31→20:49)
[2019-01-10] MEDS ORDERED: Loratadine 10 MG TAB PO SCH (09:00)
[2019-01-10 10:08] LABS: ALT (SGPT) 31 U/L (8-55); AST (SGOT) 39 U/L (5-34); Albumin 2.2 g/dL (3.4-4.8); Alkaline Phosphatase 214 U/L (40-150); Anion Gap 12 mmol/L (10-20); BUN (Urea Nitrogen) 19 mg/dL (8.4-25.7); Bilirubin, Total 0.3 mg/dL (0.2-1.2); CRP (Inflammatory) 4.68 mg/dL (= or < 0.5); Calc. Creatinine Clearance 78 mL/min (70-130); Calcium 7.6 mg/dL (7.8-10.44); Carbon Dioxide 22 mmol/L (23-31); Chloride 107 mmol/L (98-107); Estimated GFR-MDRD 69; Globulin 3.4 g/dL (2.4-3.5); Glucose 155 mg/dL (83-110); Potassium 3.2 mmol/L (3.5-5.1); Protein, Total 5.6 g/dL (5.8-8.1); Sodium 138 mmol/L (136-145)
[2019-01-10] MEDS: Carbidopa/Levodopa 25-250 mg Tablet PO SCH (20:42)
[2019-01-10] MEDS: Atorvastatin Calcium 10 MG TAB PO SCH (20:43)
[2019-01-10] MEDS: Zolpidem Tartrate 5 MG TAB PO PRN (22:24)
[2019-01-11] MEDS: Metoprolol Tartrate 25 MG TAB PO SCH ×2 (08:20→21:05)
[2019-01-11] MEDS: Vit A,C & E/Lutein/Minerals Tablet PO SCH (08:20)
[2019-01-11] MEDS: Ibuprofen 200 MG TAB PO SCH ×4 (08:20→21:02)
[2019-01-11] MEDS: NIFEdipine XL 30 MG TAB PO SCH (08:21)
[2019-01-11] MEDS: Potassium Chloride 20 MEQ TAB PO SCH ×2 (08:21→16:25)
[2019-01-11] MEDS: Gabapentin 300 MG CAP PO SCH ×3 (08:22→21:01)
[2019-01-11] MEDS: HYDROcodone/Acetaminophen 5/325 mg Tablet PO PRN ×4 (08:22→21:01)
[2019-01-11] MEDS: Enoxaparin Sodium 40 MG/0.4 ML SYRINGE SC SCH (08:23)
--- NOTE | 2019-01-11 13:16 | PRG ---
DATE OF SERVICE: 01/11/2019 SUBJECTIVE: Mr. Messina is a well-developed, well-nourished, very pleasant, 83-year-old white male, who underwent antrectomy and truncal vagotomy for bleeding. He had a Christianne-en-Y done, but unfortunately, reconstruction failed. He developed some gastric necrosis. He was taken back to surgical suite, ended up with a subtotal gastrectomy along with Christianne-en-Y limb anastomosed to his residual stomach. Postoperatively, he has been very weak and is able to walk only a few feet when he got here. He walked 250 feet with several rests, but he is able to do much better. Unfortunately, his appetite is terrible. He is not being able to eat very much. He is on high-protein diet trying to help get stronger. His labs yesterday were much improved. OBJECTIVE: VITAL SIGNS: Today, reveal blood pressure 145/68, pulse 66 to 75, respirations 20, O2 sat 92% to 97% on room air, and T-max 98.1. GENERAL: This is a well-developed, well-nourished, very pleasant 83-year-old white male, in no apparent distress. HEENT: Reveals normocephalic and nontraumatic cranium. Pupils are equal, round, and reactive. Extraocular movements are intact. Nose and throat are slightly dry. NECK: Supple without masses, nodes, or bruits. CHEST: Clear to auscultation. No rales, rhonchi, wheezes, or cough is heard. HEART: Reveals a regular rate and rhythm at this time. No murmurs, gallops, or rubs are noted. ABDOMEN: Soft, nontender. No organomegaly is noted. No rebound or guarding is noted. : Deferred. EXTREMITIES: Reveal still 2+ edema in lower extremities and some in the upper extremities. PICC line is still working well. NEUROLOGIC: He is oriented to person, place, and time. LABORATORY DATA: Pre-albumin is gone from 8 to 11. ASSESSMENT: 1. Anemia, which has slowly improved. 2. Status post significant abdominal surgery. 3. Diabetes, type 2. 4. Hypertension. 5. Hyperlipidemia. 6. Malnourishment with a pre-albumin now has improved from 8 to 11. 7. Bilateral pleural effusions with elevated BNP. The patient is still on Lasix, and his creatinine is doing well. PLAN: 1. Continue Lasix 40 mg a day. 2. Continue labs p.r.n. 3. Encourage the patient to continue increasing his p.o. intake and try to take a bite of everything on his plate. 4. Monitor the patient's diarrhea. 5. Continue routine labs. 6. Accu-Cheks with sliding scale. 7. Continue to follow the patient clinically. Job ID: [id number]
[2019-01-11] MEDS: Ondansetron ODT 4 MG TAB PO PRN (17:36)
[2019-01-11] MEDS: Carbidopa/Levodopa 25-250 mg Tablet PO SCH (21:01)
[2019-01-11] MEDS: Atorvastatin Calcium 10 MG TAB PO SCH (21:02)
[2019-01-12] MEDS ORDERED: Bisacodyl 10 MG SUPP PR PRN (08:00)
[2019-01-12] MEDS: Ibuprofen 200 MG TAB PO SCH ×4 (08:48→20:49)
[2019-01-12] MEDS: Potassium Chloride 20 MEQ TAB PO SCH ×2 (08:48→16:55)
--- NOTE | 2019-01-12 08:50 | RAD ---
Abdomen 2 views INDICATION: Constipation vomiting and history of partial gastrectomy COMPARISON: None FINDINGS: There is a surgical drain within the left upper abdomen. The bowel gas pattern is nonspecif ic but without evidence of obstruction. There are scattered vascular calcifications. No suspicious calcification is evident. There is extensive spinal instrumentation spanning L2-L5. There is a left S I joint arthrodesis. There is diffuse osteopenia. There are small bilateral pleural effusions. There is left and right basilar airspace opacities which may reflect pneumonia or atelectasis. IMPRESSION: Bilateral pleural effusions with bibasilar airspace opacities, left greater than right, w hich may reflect atelectasis. Component of pneumonia cannot be entirely excluded. Recommend a chest radiograph for further evaluation. There is a surgical drain within the upper abdomen.
[2019-01-12] MEDS ORDERED: Metoprolol Tartrate 25 MG TAB ONE ×2 (09:10→19:55)
[2019-01-12] MEDS: Gabapentin 300 MG CAP PO SCH ×3 (09:42→20:49)
[2019-01-12] MEDS: Metoprolol Tartrate 25 MG TAB PO SCH ×2 (09:42→20:49)
[2019-01-12] MEDS: Vit A,C & E/Lutein/Minerals Tablet PO SCH (09:42)
[2019-01-12] MEDS: NIFEdipine XL 30 MG TAB PO SCH (09:43)
[2019-01-12] MEDS: Enoxaparin Sodium 40 MG/0.4 ML SYRINGE SC SCH (09:45)
--- NOTE | 2019-01-12 09:51 | PRG ---
DATE OF SERVICE: 01/12/2019 SUBJECTIVE: The patient complains of recurrent nausea and vomiting last night and feels that he is become constipated. He has not had a bowel movement in several days. He is having minimal abdominal pain. He is having no fever or chills. He is having no drainage from his wound. He is feeling somewhat stronger until the episode of nausea. He has not eaten today. OBJECTIVE: VITAL SIGNS: Shows his temperature is 98.8, pulse 73, respirations 20, O2 saturation 94% on room air, and blood pressure 135/64. LUNGS: Clear. CARDIAC: Showed regular rhythm. ABDOMEN: Soft, minimally tender. Good bowel sounds. SKIN AND EXTREMITIES: Showed trace edema. No clubbing or cyanosis. ASSESSMENT: 1. Recurrent nausea and vomiting since last night with minimal response to Zofran. 2. Current constipation and we will give Dulcolax. 3. Status post partial gastrectomy, healing well with no further drainage from the catheter. 4. Hypertension, controlled to goal. 5. Malnutrition, slowly improving. PLAN: 1. Dulcolax suppository. 2. Abdominal x-ray to evaluate for obstruction or constipation. 3. Continue Accu-Cheks to monitor and titrate and control diabetes. 4. Continue to monitor vital signs closely. 5. Stress increased oral intake. Job ID: [id number]
[2019-01-12] MEDS: HYDROcodone/Acetaminophen 5/325 mg Tablet PO PRN (20:43)
[2019-01-12] MEDS: Carbidopa/Levodopa 25-250 mg Tablet PO SCH (20:44)
[2019-01-12] MEDS: Atorvastatin Calcium 10 MG TAB PO SCH (20:49)
[2019-01-12] MEDS: Zolpidem Tartrate 5 MG TAB PO PRN (23:24)
[2019-01-13 03:37] VITALS: BMI 27.2
[2019-01-13] MEDS: HYDROcodone/Acetaminophen 5/325 mg Tablet PO PRN ×5 (05:45→22:45)
[2019-01-13] MEDS ORDERED: Metoprolol Tartrate 25 MG TAB ONE ×2 (08:38→19:38)
[2019-01-13] MEDS: Enoxaparin Sodium 40 MG/0.4 ML SYRINGE SC SCH (08:45)
[2019-01-13] MEDS: Potassium Chloride 20 MEQ TAB PO SCH ×2 (08:46→16:52)
[2019-01-13] MEDS: Ibuprofen 200 MG TAB PO SCH ×4 (08:46→20:46)
[2019-01-13] MEDS: NIFEdipine XL 30 MG TAB PO SCH (08:56)
[2019-01-13] MEDS: Gabapentin 300 MG CAP PO SCH ×3 (08:57→20:47)
[2019-01-13] MEDS: Vit A,C & E/Lutein/Minerals Tablet PO SCH (08:58)
[2019-01-13] MEDS: Metoprolol Tartrate 25 MG TAB PO SCH ×2 (08:58→20:50)
--- NOTE | 2019-01-13 20:02 | PRG ---
DATE OF SERVICE: 01/13/2019 SUBJECTIVE: The patient is a very pleasant 83-year-old white male, who has undergone a partial gastrectomy secondary to necrosis of previous antrectomy and is feeling well with no drainage from the catheter. He has had problems with constipation causing him to have poor appetite and bloating, but did have a large bowel movement yesterday and today and now feels well, sitting up, visiting with friends. He is having no fever or chills. He is looking forward to see any surgeon tomorrow about possibly removing his drain. OBJECTIVE: VITAL SIGNS: Blood pressure is 146/66, O2 saturations 94% on room air, pulse 73, afebrile. LUNGS: Clear. CARDIAC: Shows regular rhythm. ABDOMEN: Soft and nontender. Good bowel sounds. EXTREMITIES: No edema, clubbing, or cyanosis. There is no drainage from the drain in the right upper quadrant. ASSESSMENT: 1. Resolved constipation. Abdominal x-ray showing no evidence of obstruction and no further anorexia. 2. Type 2 diabetes, controlled to goal. 3. Hypertension, controlled to goal. 4. Malnutrition, improving. PLAN: Follow up with Dr. Blanc tomorrow, Dr. Dueñas to be back at 9:00 p.m. tonight. Continue Accu-Cheks to monitor and titrate and control diabetes. Continue to monitor vital signs closely. Job ID: [id number]
[2019-01-13] MEDS: Atorvastatin Calcium 10 MG TAB PO SCH (20:47)
[2019-01-13] MEDS: Carbidopa/Levodopa 25-250 mg Tablet PO SCH (20:47)
[2019-01-13] MEDS: Zolpidem Tartrate 5 MG TAB PO PRN (22:45)
[2019-01-14] MEDS: Ibuprofen 200 MG TAB PO SCH ×4 (08:21→21:00)
[2019-01-14] MEDS: Potassium Chloride 20 MEQ TAB PO SCH ×2 (08:21→16:53)
[2019-01-14] MEDS: Gabapentin 300 MG CAP PO SCH ×3 (08:22→21:01)
[2019-01-14] MEDS: Enoxaparin Sodium 40 MG/0.4 ML SYRINGE SC SCH (08:22)
[2019-01-14] MEDS: Metoprolol Tartrate 25 MG TAB PO SCH (08:23)
[2019-01-14] MEDS: NIFEdipine XL 30 MG TAB PO SCH (08:24)
[2019-01-14] MEDS: Vit A,C & E/Lutein/Minerals Tablet PO SCH (08:26)
[2019-01-14] MEDS: HYDROcodone/Acetaminophen 5/325 mg Tablet PO PRN ×4 (08:52→23:59)
--- NOTE | 2019-01-14 20:55 | PRG ---
DATE OF SERVICE: 01/14/2019 SUBJECTIVE: Mr. Messina is a well-developed, well-nourished, 83-year-old white male, who had a truncal vagotomy and antrectomy secondary to bleeding. He had to have a Christianne-en-Y done, but unfortunately reconstruction failed. He developed gastric necrosis and had to be taken back to surgical suite. He ended up having a subtotal gastrectomy along with Christianne-en-Y limb anastomosed to his residual stomach. Postoperatively, he was transferred to [facility] for PT and OT. The patient states he is doing well today and he went to see Dr. Blanc this morning. He has a Galindo-Bernabe drain still in, and Dr. Blanc would like to keep that in for the next 1 to 2 weeks. OBJECTIVE: VITAL SIGNS: This morning reveal blood pressure 140/65, pulse 68 to 74, respirations 18, O2 saturations 95% to 96% on room air, T-max 97.0. GENERAL: Physical exam reveals a well-developed, well-nourished, thin white male, in no apparent distress at this time. HEENT: Reveals normocephalic and nontraumatic cranium. Pupils are equal, round, and reactive. Extraocular movements are intact. Nose and throat are slightly dry, but clear. NECK: Supple without masses, nodes, or bruits. CHEST: Clear to auscultation. No rales, rhonchi, wheezes, or cough is heard. HEART: Reveals a regular rate and rhythm without murmurs, gallops, or rubs. ABDOMEN: Soft, nontender, and healing well. He does still have the Galindo-Bernabe drain in, we will keep that for a while, it is on the right-hand side. Midline incision is healing well, which is bandaged with dressing. : Deferred. EXTREMITIES: Reveal still 2+ edema in lower extremities, but improving. NEUROLOGIC: The patient is oriented to person, place, and time. ASSESSMENT: 1. Anemia, which is slowly improving. 2. Status post significant abdominal surgery. 3. Diabetes, type 2. 4. Hypertension. 5. Hyperlipidemia. 6. Malnutrition with prealbumin that has improved from 8 to 11. 7. Bilateral pleural effusions with elevated BNP. PLAN: 1. Continue Lasix 40 mg a day. 2. Continue labs p.r.n. 3. Encourage the patient to increase his p.o. intake and try to take a bite of every food on his plate. 4. Monitor the patient for diarrhea and/or constipation. 5. Continue routine labs. 6. Accu-Cheks with sliding scale. 7. Continue to follow the patient clinically. Job ID: [id number]
[2019-01-14] MEDS: Metoprolol Tartrate 50 MG TAB PO SCH (20:59)
[2019-01-14] MEDS: Atorvastatin Calcium 10 MG TAB PO SCH (21:01)
[2019-01-14] MEDS: Carbidopa/Levodopa 25-250 mg Tablet PO SCH (21:01)
[2019-01-14] MEDS: Zolpidem Tartrate 5 MG TAB PO PRN (23:58)
[2019-01-14] MEDS: tiZANidine HCl 4 MG TAB PO PRN (23:58)
[2019-01-15] MEDS: Ibuprofen 200 MG TAB PO SCH ×4 (08:59→20:50)
[2019-01-15] MEDS: Enoxaparin Sodium 40 MG/0.4 ML SYRINGE SC SCH (09:00)
[2019-01-15] MEDS: Potassium Chloride 20 MEQ TAB PO SCH ×2 (09:00→16:49)
[2019-01-15] MEDS: Gabapentin 300 MG CAP PO SCH ×3 (09:00→20:49)
[2019-01-15] MEDS: Metoprolol Tartrate 50 MG TAB PO SCH ×2 (09:01→20:50)
[2019-01-15] MEDS: Vit A,C & E/Lutein/Minerals Tablet PO SCH (09:02)
[2019-01-15] MEDS ORDERED: NIFEdipine XL 30 MG TAB ONE (09:11)
[2019-01-15] MEDS: NIFEdipine XL 30 MG TAB PO SCH (09:13)
[2019-01-15] MEDS: HYDROcodone/Acetaminophen 5/325 mg Tablet PO PRN ×4 (09:17→23:15)
--- NOTE | 2019-01-15 19:47 | PRG ---
DATE OF SERVICE: 01/15/2019 SUBJECTIVE: Mr. Messina is a very pleasant 83-year-old white male, who had a truncal vagotomy, antrectomy secondary to bleeding. He had to have a Christianne-en-Y done, but unfortunately reconstruction failed. He developed a gastric necrosis, had to be taken back to surgical suite. End up having a subtotal gastrectomy along with Christianne-en-Y, which was connected to his residual stomach. Postoperatively, he was stabilized and was transferred to [facility] for PT and OT. The patient is actually doing very well. He is walking quite a bit. He still has a Galindo-Bernabe drain that is still in and Dr. Blanc would like to keep in for another 1 to 2 weeks. OBJECTIVE: VITAL SIGNS: Reveal blood pressure 143/66, pulse 53, respirations 20, O2 saturation 94% to 95% on room air, and T-max 97.5. GENERAL: On physical exam, this is a well-developed, well-nourished, pleasant, but thin white male, in no apparent distress at this time. HEENT: Reveals normocephalic and nontraumatic cranium. Pupils are equal, round, and reactive. Extraocular movements are intact. Nose and throat are slightly dry, but clear. NECK: Supple without masses, nodes, or bruits. CHEST: Clear to auscultation. No rales, rhonchi, or wheezes are noted. No cough is heard. HEART: Reveals a regular rate and rhythm without murmurs, gallops, or rubs. ABDOMEN: Soft and nontender without organomegaly. Normal bowel sounds are noted. The patient does have a Galindo-Bernabe drain in, we will keep that in for another couple weeks. It is on the right side. Midline incisions continues to heal well. It is bandaged with a dressing without having any significant drainage. GENITOURINARY: Deferred. EXTREMITIES: Reveal 1+ edema in lower extremities and mild traces edema in upper extremities. NEUROLOGIC: The patient is oriented to person, place, and time. ASSESSMENT: 1. Anemia, which is slowly improving. 2. Status post significant abdominal surgery. 3. Diabetes type 2. 4. Hypertension. 5. Malnutrition with pre-albumin improved from 8 to 11. 6. Hyperlipidemia. 7. Bilateral pleural effusions. 8. Generalized weakness. PLAN: 1. Continue present medications including Lasix daily. 2. Continue labs p.r.n. 3. Repeat labs tomorrow morning including B12, folic acid, etc. 4. Monitor the patient for diarrhea and constipation. 5. Continue routine labs. 6. Accu-Cheks with sliding scale. 7. Follow the patient clinically. Job ID: [id number]
[2019-01-15] MEDS: Atorvastatin Calcium 10 MG TAB PO SCH (20:49)
[2019-01-15] MEDS: Carbidopa/Levodopa 25-250 mg Tablet PO SCH (20:49)
[2019-01-15] MEDS: Nystatin Cream 30 GM TUBE TOP SCH (21:00)
[2019-01-15] MEDS: tiZANidine HCl 4 MG TAB PO PRN (23:14)
[2019-01-15] MEDS: Zolpidem Tartrate 5 MG TAB PO PRN (23:15)
[2019-01-16 06:16] LABS: #Basophils 0.1 thou/uL (0.0-0.2); #Eosinphils 0.1 thou/uL (0.0-0.7); #Lymphocytes 1.7 thou/uL (1.20-3.40); #Monocytes 0.4 thou/uL (0.11-0.59); #Neutrophils 2.8 thou/uL (1.40-6.50); %Basophils 1.3 % (0.0-1.0); %Eosinophils 2.6 % (0.0-10.0); %Lymphocytes 33.6 % (21.0-51.0); %Neutrophils 54.6 % (42.0-75.0); Hemoglobin 8.8 g/dL (14.0-18.0); Mean Corpuscular HGB CONC 33.8 g/dL (32.0-36.0); Mean Corpuscular Hemoglobin 27.5 pg (27.0-31.0); Mean Corpuscular Volume 81.4 fL (78.0-98.0); Mean Platelet Volume 7.4 fL (7.4-10.4); Platelet Count 203 thou/uL (130-400); RBC Distribution Width 20.2 % (11.5-14.5); Red Blood Cell (RBC) Count 3.19 mill/uL (4.70-6.10); White Blood Cell (WBC) Count 5.1 thou/uL (4.8-10.8)
[2019-01-16 06:26] LABS: ALT (SGPT) 18 U/L (8-55); AST (SGOT) 37 U/L (5-34); Albumin 2.2 g/dL (3.4-4.8); Alkaline Phosphatase 204 U/L (40-150); Anion Gap 14 mmol/L (10-20); BUN (Urea Nitrogen) 29 mg/dL (8.4-25.7); Bilirubin, Total 0.3 mg/dL (0.2-1.2); Calc. Creatinine Clearance 94 mL/min (70-130); Calcium 8.1 mg/dL (7.8-10.44); Carbon Dioxide 20 mmol/L (23-31); Chloride 107 mmol/L (98-107); Estimated GFR-MDRD 86; Globulin 3.3 g/dL (2.4-3.5); Glucose 65 mg/dL (83-110); Potassium 4.8 mmol/L (3.5-5.1); Protein, Total 5.5 g/dL (5.8-8.1); Sodium 136 mmol/L (136-145)
[2019-01-16] MEDS: Potassium Chloride 20 MEQ TAB PO SCH ×2 (08:34→16:35)
[2019-01-16] MEDS: Ibuprofen 200 MG TAB PO SCH ×4 (08:34→20:21)
[2019-01-16] MEDS ORDERED: NIFEdipine XL 30 MG TAB ONE (08:49)
[2019-01-16] MEDS: Enoxaparin Sodium 40 MG/0.4 ML SYRINGE SC SCH (09:31)
[2019-01-16] MEDS: Vit A,C & E/Lutein/Minerals Tablet PO SCH (09:33)
[2019-01-16] MEDS: Gabapentin 300 MG CAP PO SCH ×3 (09:35→20:21)
[2019-01-16] MEDS: Metoprolol Tartrate 50 MG TAB PO SCH ×2 (09:35→20:21)
[2019-01-16] MEDS: NIFEdipine XL 30 MG TAB PO SCH (09:35)
[2019-01-16] MEDS: Nystatin Cream 30 GM TUBE TOP SCH (09:36)
[2019-01-16] MEDS: HYDROcodone/Acetaminophen 5/325 mg Tablet PO PRN ×3 (09:46→20:22)
[2019-01-16] MEDS ORDERED: Nystatin Cream 15 GM TUBE TOP SCH (10:00)
[2019-01-16 13:07] LABS: Ferritin 126.44 ng/mL (22-322)
[2019-01-16 13:08] LABS: Vitamin D, 25 Hydroxy 24.4 ng/ml (> 30.0)
[2019-01-16 13:28] LABS: Folate (Folic Acid) 13.6 ng/mL (7.0-31.4)
[2019-01-16 14:36] LABS: Iron 17 ug/dL (65-175); Iron Binding Capacity, Total 156 mcg/dL (261-462)
--- NOTE | 2019-01-16 17:09 | PRG ---
DATE OF SERVICE: 01/16/2019 SUBJECTIVE: Mr. Messina is a very pleasant 83-year-old white male, who had abdominal bleeding and anemia, and had a truncal vagotomy and antrectomy. He did have a Christianne-en-Y done, but unfortunately reconstruction failed. He developed a significant gastric necrosis and they had to go back to the surgical suite to do a subtotal gastrectomy along with Christianne-en-Y, which was connected to his residual stomach. Postoperatively, finding was stabilized and he was transferred to [facility] for PT, OT, and nutritional support. The patient states he is doing well and wants to go home on Monday. He states he is still walking a bit, but he had difficulty getting up and down. Dr. Blanc wanted to keep his Galindo-Bernabe drain in for another 1 to 2 weeks. OBJECTIVE: VITAL SIGNS: Today reveal blood pressure 159/73; respirations 16; O2 saturation 97% to 98% on room air, T-max 97.4. GENERAL: This is a well-developed, well-nourished, tall, thin, white male, in no apparent distress at this time. HEENT: Reveals normocephalic and nontraumatic cranium. Pupils are equally round and reactive. Extraocular movements are intact. Nose and throat are slightly dry. NECK: Supple without masses, nodes, or bruits. CHEST: Clear to auscultation. No rales, rhonchi, wheezes, or cough is heard. HEART: Reveals a regular rate and rhythm without murmurs, gallops, or rubs. ABDOMEN: Soft and nontender. Somewhat scaphoid. Normal bowel sounds are noted in all 4 quadrants. The patient does have a Galindo-Bernabe drain still in place. Dr. Jose Blanc wanted to keep that for another 2 weeks. Midline incision continues to do well, which is covered, but can be washed with soap and water. : Deferred. EXTREMITIES: Reveal still 1+ edema in the lower extremities and trace edema in his upper extremities. NEUROLOGIC: The patient is oriented to person, place, time, and situation. LABORATORY DATA: The patient's laboratory drawn this morning revealed white count still 5100 with a hemoglobin of 8.8, hematocrit 25.9, and platelet count 203. The patient's sodium is 136; potassium 4.8; chloride 107; carbon dioxide 20 with a BUN of 29; creatinine 0.85, which is much improved. GFR is 86. The patient's iron is 17, which is low. The patient's TIBC is 156, which is low. Iron saturation is 11, which is low. Ferritin is 126. Liver enzymes reveal AST is minimally elevated at 37 with AST normal at 18. The patient's pre-albumin is gone from 11 to 12. The patient's B12 is 896. The patient's vitamin D is 24.4, which is low and the patient's folate is 13.6, which is normal. ASSESSMENT: 1. Anemia, which is presently stable. 2. Status post significant abdominal surgery. 3. Diabetes, type 2. 4. Hypertension. 5. Malnutrition with pre-albumin from 8 to 11 to 12. 6. Hyperlipidemia. 7. Bilateral pleural effusions. 8. Generalized weakness. PLAN: 1. Continue present medications with Lasix daily. 2. Continue labs p.r.n. 3. Monitor the patient for diarrhea and constipation. 4. Continue routine labs. 5. Accu-Cheks a.c. and h.s. sliding scale. 6. Follow the patient clinically. Job ID: [id number] MTDD
[2019-01-16] MEDS: Atorvastatin Calcium 10 MG TAB PO SCH (20:22)
[2019-01-16] MEDS: Carbidopa/Levodopa 25-250 mg Tablet PO SCH (20:22)
[2019-01-16] MEDS: Nystatin Cream 15 GM TUBE TOP SCH (20:25)
[2019-01-16] MEDS: Zolpidem Tartrate 5 MG TAB PO PRN (22:32)
[2019-01-16] MEDS: tiZANidine HCl 4 MG TAB PO PRN (22:32)
[2019-01-17] MEDS: HYDROcodone/Acetaminophen 5/325 mg Tablet PO PRN ×3 (09:16→20:54)
[2019-01-17] MEDS: NIFEdipine XL 30 MG TAB PO SCH (09:18)
[2019-01-17] MEDS: Metoprolol Tartrate 50 MG TAB PO SCH ×2 (09:18→20:54)
[2019-01-17] MEDS: Nystatin Cream 15 GM TUBE TOP SCH ×2 (09:19→20:59)
[2019-01-17] MEDS: Vit A,C & E/Lutein/Minerals Tablet PO SCH (09:19)
[2019-01-17] MEDS: Gabapentin 300 MG CAP PO SCH ×3 (09:19→20:54)
[2019-01-17] MEDS: Ibuprofen 200 MG TAB PO SCH ×4 (09:19→20:58)
[2019-01-17] MEDS: Enoxaparin Sodium 40 MG/0.4 ML SYRINGE SC SCH (09:20)
[2019-01-17] MEDS: Potassium Chloride 20 MEQ TAB PO SCH ×2 (09:21→18:54)
--- NOTE | 2019-01-17 10:23 | PRG ---
DATE OF SERVICE: 01/17/2019 SUBJECTIVE: Mr. Messina is a very pleasant 83-year-old white male, who had abdominal pain and bleeding. He was admitted to [facility], very anemic and having a truncal vagotomy and antrectomy. He did have a Christianne-en-Y done, but unfortunately his reconstruction failed. He developed a significant gastric necrosis and they had to go back to surgical suite and did a subtotal gastrectomy along with Christianne-en-Y. The Christianne-en-Y was connected to his residual stomach. Postoperatively, he eventually was stabilized and now has been transferred to [facility] for PT, OT, and nutritional support. The patient states he is doing well, excited about going home. He is walking multiple rounds of the hospital and then working 10 minutes on the bicycle. He states his strength is much improved. His appetite is slowly improving. His last pre-albumin was 11. OBJECTIVE: VITAL SIGNS: Today reveal blood pressure 130/64, pulse 73, respirations 20, O2 saturation 94% to 99% on room air, and T-max 98.3. GENERAL: This is a well-developed, well-nourished, very pleasant white male, in no apparent distress at this time. HEENT: Reveals normocephalic and nontraumatic cranium. Pupils are equal, round, and reactive. Extraocular movements are intact. Nose and throat are moist today. NECK: Supple without masses, nodes, or bruits. CHEST: Clear to auscultation. No rales, rhonchi, wheezes, or cough is heard. HEART: Reveals a regular rate and rhythm without murmurs, gallops, or rubs. ABDOMEN: Soft and nontender without organomegaly. Normal bowel sounds are noted in all 4 quadrants. The patient still has a Galindo-Bernabe, which has very little drainage. Dr. Blanc wants to keep that for another week and a half. Incision continues do well as covered, but no significant drainage. GENITOURINARY: Deferred. EXTREMITIES: Reveal 1+ edema in the lower extremities and trace edema in his upper arms. NEUROLOGIC: The patient is oriented to person, place, time, and situation. LABORATORY DATA: No labs were done. ASSESSMENT: 1. Anemia, which is stable. 2. Status post significantly large abdominal surgery. 3. Diabetes type 2. 4. Hypertension. 5. Malnutrition with pre-albumin, which is gone from 8 to 11 to 12. 6. Hyperlipidemia. 7. Bilateral pleural effusions. 8. Generalized weakness. PLAN: 1. Continue present medication with Lasix daily. 2. Continue labs p.r.n. 3. Monitor the patient for diarrhea and constipation. 4. Continue routine labs. 5. Accu-Cheks and sliding scale p.r.n. 6. Follow the patient clinically. 7. The patient will be discharged tomorrow afternoon. Job ID: [id number]
[2019-01-17] MEDS: Ondansetron ODT 4 MG TAB PO PRN (14:58)
[2019-01-17] MEDS ORDERED: Metoclopramide HCl 10 MG/2 ML VIAL IVP SCH (16:00)
[2019-01-17] MEDS: Carbidopa/Levodopa 25-250 mg Tablet PO SCH (20:54)
[2019-01-17] MEDS: Atorvastatin Calcium 10 MG TAB PO SCH (20:58)
[2019-01-17] MEDS: Zolpidem Tartrate 5 MG TAB PO PRN (22:53)
[2019-01-18] MEDS ORDERED: Activase 2 MG VIAL CATH SCH (06:15)
[2019-01-18] MEDS ORDERED: Sterile Water 10 ML ONE (06:17)
[2019-01-18] MEDS: Enoxaparin Sodium 40 MG/0.4 ML SYRINGE SC SCH (08:22)
[2019-01-18] MEDS: Vit A,C & E/Lutein/Minerals Tablet PO SCH (08:25)
[2019-01-18] MEDS: NIFEdipine XL 30 MG TAB PO SCH (08:25)
[2019-01-18] MEDS: Metoprolol Tartrate 50 MG TAB PO SCH (08:26)
[2019-01-18] MEDS: Nystatin Cream 15 GM TUBE TOP SCH (08:26)
[2019-01-18] MEDS: Gabapentin 300 MG CAP PO SCH ×2 (08:26→14:22)
[2019-01-18] MEDS: Ibuprofen 200 MG TAB PO SCH ×2 (08:26→12:17)
[2019-01-18 09:18] LABS: ALT (SGPT) 20 U/L (8-55); AST (SGOT) 34 U/L (5-34); Albumin 2.3 g/dL (3.4-4.8); Alkaline Phosphatase 185 U/L (40-150); Anion Gap 12 mmol/L (10-20); BUN (Urea Nitrogen) 20 mg/dL (8.4-25.7); Bilirubin, Total 0.4 mg/dL (0.2-1.2); Calc. Creatinine Clearance 97 mL/min (70-130); Carbon Dioxide 26 mmol/L (23-31); Chloride 103 mmol/L (98-107); Estimated GFR-MDRD 89; Globulin 3.1 g/dL (2.4-3.5); Glucose 80 mg/dL (83-110); Potassium 3.9 mmol/L (3.5-5.1); Protein, Total 5.4 g/dL (5.8-8.1); Sodium 137 mmol/L (136-145)
[2019-01-18 09:21] LABS: #Basophils 0.1 thou/uL (0.0-0.2); #Eosinphils 0.1 thou/uL (0.0-0.7); #Lymphocytes 1.7 thou/uL (1.20-3.40); #Monocytes 0.4 thou/uL (0.11-0.59); #Neutrophils 3.7 thou/uL (1.40-6.50); %Basophils 1.3 % (0.0-1.0); %Eosinophils 1.2 % (0.0-10.0); %Lymphocytes 29.2 % (21.0-51.0); %Monocytes 6.9 % (0.0-10.0); %Neutrophils 61.5 % (42.0-75.0); Hemoglobin 9.1 g/dL (14.0-18.0); Mean Corpuscular HGB CONC 31.1 g/dL (32.0-36.0); Mean Corpuscular Volume 77.3 fL (78.0-98.0); Mean Platelet Volume 7.6 fL (7.4-10.4); Platelet Count 271 thou/uL (130-400); RBC Distribution Width 20.3 % (11.5-14.5); Red Blood Cell (RBC) Count 3.78 mill/uL (4.70-6.10)
[2019-01-18 12:02] VITALS: BP 155/69; TEMP 98.3
[2019-01-18] MEDS: tiZANidine HCl 4 MG TAB PO PRN (12:17)
[2019-01-18] MEDS: Carbidopa/Levodopa 25-250 mg Tablet PO SCH (14:22)
--- NOTE | 2019-01-18 17:14 | DIS ---
DATE OF ADMISSION: 01/01/2019 DATE OF DISCHARGE: 01/18/2019 HISTORY OF PRESENT ILLNESS: Mr. Messina is a very pleasant 83-year-old white male. He had some abdominal pain with noted bleeding and was admitted to [facility]. He was very anemic and had to have a truncal vagotomy and antrectomy. His reconstruction failed and he developed significant gastric necrosis. They took him back to the surgical suite and did a subtotal gastrectomy with Christianne-en-Y connected to his residual stomach. Postoperatively, he eventually was stabilized and has been transferred to [facility] for PT, OT , nutritional support. The patient has done exceedingly well. He is walking well and actually walked 460 feet with only two rest stops today. The patient is eating better, and his prealbumin has gone from 8 to 11 to 12. He is a little low on his vitamin D and we will vitamin D supplement him. Otherwise, his folic acid and B12 are normal. He states he is doing well and can do what he needs to at home and will come in twice a week for PT and OT. He states he is ready for discharge. Vital signs today reveal blood pressure this morning 155/69, pulse 72 to 77, respirations 20, O2 saturation 95% to 96% on room air, and T-max 98.3. LABORATORY DATA: Labs today reveal white count 6000, hemoglobin 9.1, hematocrit 29.2, and platelet count 270,000. He has no shift. Chemistry; sodium 137, potassium 3.9, chloride 103, carbon dioxide 26 with a BUN of 20, creatinine 0.8. GFR is 89. Sugar is 80 this morning. His alkaline phosphatase is decreasing, it is 185. Serum total protein is 5.4, albumin is 2.3, globulin 3.1, ratio of 0.7. Vitamin B12 is normal at 896. Folic acid is normal at 13.6. Vitamin D is low at 24.4, pre-albumin has increased at 12.0. PHYSICAL EXAMINATION: GENERAL: This is a well-developed, well-nourished, very pleasant white male, in no apparent distress at this time. HEENT: Reveals normocephalic and nontraumatic cranium. Pupils are equal, round , and reactive. Extraocular movements are intact. Nose and throat are slightly dry. NECK: Supple without masses, nodes, or bruits. CHEST: Clear to auscultation. No rales, no rhonchi, no wheezes are heard. HEART: Reveals a regular rate and rhythm without murmurs, gallops, or rubs. ABDOMEN: Reveals a 10-inch midline incision, which was viewed today, it is healing. It has a little drainage at the top and a little at the bottom, but very little. The patient was instructed to wash with soap and water daily and rebandage. The patient's MIREILLE drain was inadvertently pulled out while the patient was in the shower last Monday. It looks fine and has no significant drainage at this time. His abdomen is soft and nontender. No rebound or guarding is noted. : Deferred. EXTREMITIES: Reveal no clubbing or cyanosis. The patient does have 1+ edema in his lower extremities, which is much improved. He has only trace edema in his upper extremities, which is also much improved. NEUROLOGIC: The patient is oriented to person, place, time, and situation. ASSESSMENT: 1. Stable anemia, which is gradually improving. 2. 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 3. Malnutrition, which is improving. 4. Diabetes, type 2. 5. Hypertension. 6. Hyperlipidemia. 7. Bilateral pleural effusions, stable. 8. Generalized weakness. PLAN: 1. Continue present medications. Even with Lasix daily. 2. Continue labs p.r.n. 3. Monitor the patient for diarrhea and constipation. 4. Accu-Cheks p.r.n. 5. Follow the patient clinically. 6. The patient will be discharged today. 7. The patient is to see Dr. Jose Blanc in 10 days. 8. The patient is to follow up with me after that. 9. The patient is to call with any problems. 10. The patient's PICC line will be discontinued today. 11. I did review all the patient's medications with he and his . Job ID: [id number] [facility]
== END 2019-01-18 14:50 | disposition home or self-care (01) | DRG 394 ==
LOC: NAV ACUTE 14:13
PROVIDERS: ADMIT Family Medicine; ATTEND Family Medicine
DX: K91.89 Other postprocedural complications and disorders of digestive system (principal); E46 Unspecified protein-calorie malnutrition; J90 Pleural effusion, not elsewhere classified; R53.81 Other malaise; E11.42 Type 2 diabetes mellitus with diabetic polyneuropathy; D64.9 Anemia, unspecified; I10 Essential (primary) hypertension; G25.81 Restless legs syndrome; M19.90 Unspecified osteoarthritis, unspecified site; E78.5 Hyperlipidemia, unspecified; I25.10 Atherosclerotic heart disease of native coronary artery without angina pectoris; G47.00 Insomnia, unspecified; K21.9 Gastro-esophageal reflux disease without esophagitis; J32.9 Chronic sinusitis, unspecified; Z96.651 Presence of right artificial knee joint; I70.90 Unspecified atherosclerosis; R60.0 Localized edema; K31.89 Other diseases of stomach and duodenum; K59.00 Constipation, unspecified; Z95.5 Presence of coronary angioplasty implant and graft; Z90.49 Acquired absence of other specified parts of digestive tract; Z98.41 Cataract extraction status, right eye; Z88.5 Allergy status to narcotic agent; Z88.8 Allergy status to other drugs, medicaments and biological substances; Z68.27 Body mass index [BMI] 27.0-27.9, adult
CPT/HCPCS: 36415; 36430; 71045; 74019; 80048; 80053; 82306; 82607; 82728; 82746; 83540; 83550; 83880; 84134; 85025; 86140; 86850; 86900; 86901; 87070; 87077; 87186; 87205; 94640; J1642; J1650; J1940; J2765; J2997; J7611; P9016; Q0162